=== PATIENT | female | born 1935 | race Caucasian/White ===

== ENCOUNTER → 2017-04-21 | Outpatient (CLI) | payer OTHER ==
[~2017-04-21] MED LIST: ASPIRIN EC81 M1 PO; CLEOCIN HCL150 MG PO; COREG CR20 MG PO; COREG6.25 MG PO; KEFLEX500 MG PO; LANTUS; LASIX 10 MG/10 MG/M1; LASIX 20 MG TAB20 MG PO; SIMVASTATIN40 MG PO; SPIRONOLACTONE25 M1 PO; ZOCOR 10 MG TAB10 MG
== END ==
LOC: HYPER 12:29
DX: E11.622 Type 2 diabetes mellitus with other skin ulcer (principal); L97.322 Non-pressure chronic ulcer of left ankle with fat layer exposed; E11.51 Type 2 diabetes mellitus with diabetic peripheral angiopathy without gangrene; E11.22 Type 2 diabetes mellitus with diabetic chronic kidney disease; I13.0 Hypertensive heart and chronic kidney disease with heart failure and stage 1 through stage 4 chronic kidney disease, or unspecified chronic kidney disease; N18.9 Chronic kidney disease, unspecified; I50.9 Heart failure, unspecified; I25.10 Atherosclerotic heart disease of native coronary artery without angina pectoris; Z89.432 Acquired absence of left foot; Z89.431 Acquired absence of right foot

== ENCOUNTER → 2017-05-05 | Outpatient (CLI) | payer OTHER | LOC: HYPER 07:09 | DX: E11.622 Type 2 diabetes mellitus with other skin ulcer (principal); L97.322 Non-pressure chronic ulcer of left ankle with fat layer exposed; I42.9 Cardiomyopathy, unspecified; E11.51 Type 2 diabetes mellitus with diabetic peripheral angiopathy without gangrene; E11.22 Type 2 diabetes mellitus with diabetic chronic kidney disease; Z79.4 Long term (current) use of insulin; I13.0 Hypertensive heart and chronic kidney disease with heart failure and stage 1 through stage 4 chronic kidney disease, or unspecified chronic kidney disease; N18.9 Chronic kidney disease, unspecified; I50.9 Heart failure, unspecified ==

== ENCOUNTER → 2017-05-19 | Outpatient (CLI) | payer OTHER | LOC: HYPER 07:23 | DX: L97.322 Non-pressure chronic ulcer of left ankle with fat layer exposed (principal); I10 Essential (primary) hypertension; I42.9 Cardiomyopathy, unspecified; Z79.4 Long term (current) use of insulin; E11.51 Type 2 diabetes mellitus with diabetic peripheral angiopathy without gangrene; E11.22 Type 2 diabetes mellitus with diabetic chronic kidney disease; I13.0 Hypertensive heart and chronic kidney disease with heart failure and stage 1 through stage 4 chronic kidney disease, or unspecified chronic kidney disease; N18.9 Chronic kidney disease, unspecified; I50.9 Heart failure, unspecified ==

== ENCOUNTER → 2017-08-03 | Outpatient (CLI) | payer OTHER ==
[~2017-08-03] MED LIST changes: +DOXYCYCLINE 10100 MG PO; +OXYCODONE HCL10 MG PO; +PLAVIX 75 MG TA75 M1 PO; +ZONTIVITY2.08 MG PO
== END ==
LOC: HYPER 06-16 11:24
DX: E11.622 Type 2 diabetes mellitus with other skin ulcer (principal); L97.322 Non-pressure chronic ulcer of left ankle with fat layer exposed; E11.51 Type 2 diabetes mellitus with diabetic peripheral angiopathy without gangrene; I25.10 Atherosclerotic heart disease of native coronary artery without angina pectoris; E11.22 Type 2 diabetes mellitus with diabetic chronic kidney disease; I13.0 Hypertensive heart and chronic kidney disease with heart failure and stage 1 through stage 4 chronic kidney disease, or unspecified chronic kidney disease; I50.9 Heart failure, unspecified; N18.9 Chronic kidney disease, unspecified; E78.5 Hyperlipidemia, unspecified; Z89.421 Acquired absence of other right toe(s); Z79.4 Long term (current) use of insulin; Z89.412 Acquired absence of left great toe

== ENCOUNTER → 2017-08-18 | Outpatient (CLI) | payer OTHER ==
[~2017-08-18] MED LIST changes: +NORCO 5-325 TA1 EACH PO
== END ==
LOC: HYPER 06:42
DX: E11.622 Type 2 diabetes mellitus with other skin ulcer (principal); L97.322 Non-pressure chronic ulcer of left ankle with fat layer exposed; E11.621 Type 2 diabetes mellitus with foot ulcer; L97.521 Non-pressure chronic ulcer of other part of left foot limited to breakdown of skin; L89.893 Pressure ulcer of other site, stage 3; E11.51 Type 2 diabetes mellitus with diabetic peripheral angiopathy without gangrene; E11.22 Type 2 diabetes mellitus with diabetic chronic kidney disease; I13.0 Hypertensive heart and chronic kidney disease with heart failure and stage 1 through stage 4 chronic kidney disease, or unspecified chronic kidney disease; N18.9 Chronic kidney disease, unspecified; I50.9 Heart failure, unspecified; I25.10 Atherosclerotic heart disease of native coronary artery without angina pectoris; E78.5 Hyperlipidemia, unspecified; Z79.4 Long term (current) use of insulin; Z89.421 Acquired absence of other right toe(s); Z89.422 Acquired absence of other left toe(s)

== ENCOUNTER → 2017-09-01 | Outpatient (CLI) | payer OTHER | LOC: HYPER 06:54 | DX: E11.621 Type 2 diabetes mellitus with foot ulcer (principal); L97.521 Non-pressure chronic ulcer of other part of left foot limited to breakdown of skin; L89.890 Pressure ulcer of other site, unstageable; E11.622 Type 2 diabetes mellitus with other skin ulcer; L97.322 Non-pressure chronic ulcer of left ankle with fat layer exposed; E11.22 Type 2 diabetes mellitus with diabetic chronic kidney disease; I13.0 Hypertensive heart and chronic kidney disease with heart failure and stage 1 through stage 4 chronic kidney disease, or unspecified chronic kidney disease; N18.9 Chronic kidney disease, unspecified; I50.9 Heart failure, unspecified; I25.10 Atherosclerotic heart disease of native coronary artery without angina pectoris; I73.9 Peripheral vascular disease, unspecified; E78.5 Hyperlipidemia, unspecified; Z89.421 Acquired absence of other right toe(s); Z79.4 Long term (current) use of insulin; Z89.422 Acquired absence of other left toe(s) ==

== ENCOUNTER → 2017-09-15 | Outpatient (CLI) | payer OTHER | LOC: HYPER 08:16 | DX: I70.243 Atherosclerosis of native arteries of left leg with ulceration of ankle (principal); L89.890 Pressure ulcer of other site, unstageable; E11.622 Type 2 diabetes mellitus with other skin ulcer; E11.621 Type 2 diabetes mellitus with foot ulcer; L97.322 Non-pressure chronic ulcer of left ankle with fat layer exposed; L97.521 Non-pressure chronic ulcer of other part of left foot limited to breakdown of skin; E11.51 Type 2 diabetes mellitus with diabetic peripheral angiopathy without gangrene; I25.10 Atherosclerotic heart disease of native coronary artery without angina pectoris; E11.22 Type 2 diabetes mellitus with diabetic chronic kidney disease; I13.0 Hypertensive heart and chronic kidney disease with heart failure and stage 1 through stage 4 chronic kidney disease, or unspecified chronic kidney disease; N18.9 Chronic kidney disease, unspecified; I50.9 Heart failure, unspecified; E78.5 Hyperlipidemia, unspecified; Z89.421 Acquired absence of other right toe(s); Z89.422 Acquired absence of other left toe(s); Z79.4 Long term (current) use of insulin ==

== ENCOUNTER → 2017-10-06 | Outpatient (CLI) | payer OTHER | LOC: HYPER 06:43 | DX: E11.622 Type 2 diabetes mellitus with other skin ulcer (principal); L97.322 Non-pressure chronic ulcer of left ankle with fat layer exposed; E11.621 Type 2 diabetes mellitus with foot ulcer; L97.521 Non-pressure chronic ulcer of other part of left foot limited to breakdown of skin; E11.51 Type 2 diabetes mellitus with diabetic peripheral angiopathy without gangrene; I70.233 Atherosclerosis of native arteries of right leg with ulceration of ankle; E11.22 Type 2 diabetes mellitus with diabetic chronic kidney disease; I12.9 Hypertensive chronic kidney disease with stage 1 through stage 4 chronic kidney disease, or unspecified chronic kidney disease; N18.9 Chronic kidney disease, unspecified; I25.10 Atherosclerotic heart disease of native coronary artery without angina pectoris; E78.5 Hyperlipidemia, unspecified; Z89.412 Acquired absence of left great toe; Z79.4 Long term (current) use of insulin; Z89.422 Acquired absence of other left toe(s) ==

== ENCOUNTER → 2017-10-25 | Outpatient (CLI) | payer OTHER | LOC: HYPER 07:07 | DX: E11.621 Type 2 diabetes mellitus with foot ulcer (principal); L97.521 Non-pressure chronic ulcer of other part of left foot limited to breakdown of skin; E11.622 Type 2 diabetes mellitus with other skin ulcer; I70.243 Atherosclerosis of native arteries of left leg with ulceration of ankle; L97.321 Non-pressure chronic ulcer of left ankle limited to breakdown of skin; E11.51 Type 2 diabetes mellitus with diabetic peripheral angiopathy without gangrene; R60.9 Edema, unspecified; Z79.4 Long term (current) use of insulin; I42.9 Cardiomyopathy, unspecified; E11.22 Type 2 diabetes mellitus with diabetic chronic kidney disease; I13.0 Hypertensive heart and chronic kidney disease with heart failure and stage 1 through stage 4 chronic kidney disease, or unspecified chronic kidney disease; N18.9 Chronic kidney disease, unspecified; I50.9 Heart failure, unspecified; I25.10 Atherosclerotic heart disease of native coronary artery without angina pectoris; Z89.422 Acquired absence of other left toe(s); Z89.421 Acquired absence of other right toe(s) ==

== ENCOUNTER → 2017-11-17 | Outpatient (CLI) | payer OTHER ==
[~2017-11-17] MED LIST changes: -NORCO 5-325 TA1 EACH PO
== END ==
LOC: HYPER 06:44
DX: E11.621 Type 2 diabetes mellitus with foot ulcer (principal); L97.521 Non-pressure chronic ulcer of other part of left foot limited to breakdown of skin; E11.622 Type 2 diabetes mellitus with other skin ulcer; L97.322 Non-pressure chronic ulcer of left ankle with fat layer exposed; E11.51 Type 2 diabetes mellitus with diabetic peripheral angiopathy without gangrene; R60.9 Edema, unspecified; Z79.4 Long term (current) use of insulin; E11.22 Type 2 diabetes mellitus with diabetic chronic kidney disease; I13.0 Hypertensive heart and chronic kidney disease with heart failure and stage 1 through stage 4 chronic kidney disease, or unspecified chronic kidney disease; N18.9 Chronic kidney disease, unspecified; I50.9 Heart failure, unspecified; I25.10 Atherosclerotic heart disease of native coronary artery without angina pectoris; Z89.422 Acquired absence of other left toe(s); Z89.421 Acquired absence of other right toe(s)

== ENCOUNTER → 2017-12-15 | Outpatient (CLI) | payer OTHER ==
[~2017-12-15] MED LIST changes: +NORCO 5-325 TA1 EACH PO
== END ==
LOC: HYPER 06:46
DX: E11.622 Type 2 diabetes mellitus with other skin ulcer (principal); L97.322 Non-pressure chronic ulcer of left ankle with fat layer exposed; E11.51 Type 2 diabetes mellitus with diabetic peripheral angiopathy without gangrene; R60.9 Edema, unspecified; L84 Corns and callosities; E11.22 Type 2 diabetes mellitus with diabetic chronic kidney disease; I13.0 Hypertensive heart and chronic kidney disease with heart failure and stage 1 through stage 4 chronic kidney disease, or unspecified chronic kidney disease; N18.9 Chronic kidney disease, unspecified; I50.9 Heart failure, unspecified; Z89.422 Acquired absence of other left toe(s); Z89.421 Acquired absence of other right toe(s)

== ENCOUNTER → 2017-12-29 | Outpatient (CLI) | payer OTHER | LOC: HYPER 06:46 | DX: E11.622 Type 2 diabetes mellitus with other skin ulcer (principal); I70.243 Atherosclerosis of native arteries of left leg with ulceration of ankle; L97.322 Non-pressure chronic ulcer of left ankle with fat layer exposed; E11.51 Type 2 diabetes mellitus with diabetic peripheral angiopathy without gangrene; E11.22 Type 2 diabetes mellitus with diabetic chronic kidney disease; I13.0 Hypertensive heart and chronic kidney disease with heart failure and stage 1 through stage 4 chronic kidney disease, or unspecified chronic kidney disease; N18.9 Chronic kidney disease, unspecified; I50.9 Heart failure, unspecified; L84 Corns and callosities; R60.9 Edema, unspecified; I25.10 Atherosclerotic heart disease of native coronary artery without angina pectoris; Z89.412 Acquired absence of left great toe; Z89.421 Acquired absence of other right toe(s) ==

== ENCOUNTER → 2018-01-05 | Outpatient (CLI) | payer OTHER | LOC: HYPER 07:04 | DX: E11.622 Type 2 diabetes mellitus with other skin ulcer (principal); I70.243 Atherosclerosis of native arteries of left leg with ulceration of ankle; L97.321 Non-pressure chronic ulcer of left ankle limited to breakdown of skin; L97.322 Non-pressure chronic ulcer of left ankle with fat layer exposed; S81.802D Unspecified open wound, left lower leg, subsequent encounter; E11.51 Type 2 diabetes mellitus with diabetic peripheral angiopathy without gangrene; E11.22 Type 2 diabetes mellitus with diabetic chronic kidney disease; I13.0 Hypertensive heart and chronic kidney disease with heart failure and stage 1 through stage 4 chronic kidney disease, or unspecified chronic kidney disease; N18.9 Chronic kidney disease, unspecified; I50.9 Heart failure, unspecified; I25.10 Atherosclerotic heart disease of native coronary artery without angina pectoris; I42.9 Cardiomyopathy, unspecified; L84 Corns and callosities; M12.539 Traumatic arthropathy, unspecified wrist; E78.00 Pure hypercholesterolemia, unspecified; Z89.421 Acquired absence of other right toe(s); Z79.4 Long term (current) use of insulin; Z89.412 Acquired absence of left great toe; X58.XXXD Exposure to other specified factors, subsequent encounter ==

== ENCOUNTER → 2018-01-12 | Outpatient (CLI) | payer OTHER | LOC: HYPER 07:07 | DX: E11.622 Type 2 diabetes mellitus with other skin ulcer (principal); L97.322 Non-pressure chronic ulcer of left ankle with fat layer exposed; E11.51 Type 2 diabetes mellitus with diabetic peripheral angiopathy without gangrene; I42.9 Cardiomyopathy, unspecified; E11.22 Type 2 diabetes mellitus with diabetic chronic kidney disease; I13.0 Hypertensive heart and chronic kidney disease with heart failure and stage 1 through stage 4 chronic kidney disease, or unspecified chronic kidney disease; N18.9 Chronic kidney disease, unspecified; I50.9 Heart failure, unspecified; L84 Corns and callosities; M12.539 Traumatic arthropathy, unspecified wrist; I25.10 Atherosclerotic heart disease of native coronary artery without angina pectoris; E78.5 Hyperlipidemia, unspecified; Z89.421 Acquired absence of other right toe(s); Z89.412 Acquired absence of left great toe; Z79.4 Long term (current) use of insulin ==

== ENCOUNTER → 2018-02-16 | Outpatient (CLI) | payer OTHER | LOC: HYPER 06:53 | DX: E11.622 Type 2 diabetes mellitus with other skin ulcer (principal); L97.811 Non-pressure chronic ulcer of other part of right lower leg limited to breakdown of skin; L97.821 Non-pressure chronic ulcer of other part of left lower leg limited to breakdown of skin; I70.243 Atherosclerosis of native arteries of left leg with ulceration of ankle; L97.321 Non-pressure chronic ulcer of left ankle limited to breakdown of skin; E11.22 Type 2 diabetes mellitus with diabetic chronic kidney disease; I13.0 Hypertensive heart and chronic kidney disease with heart failure and stage 1 through stage 4 chronic kidney disease, or unspecified chronic kidney disease; N18.9 Chronic kidney disease, unspecified; I50.9 Heart failure, unspecified; L84 Corns and callosities; I42.9 Cardiomyopathy, unspecified; I25.10 Atherosclerotic heart disease of native coronary artery without angina pectoris; E78.5 Hyperlipidemia, unspecified; E78.00 Pure hypercholesterolemia, unspecified; Z89.421 Acquired absence of other right toe(s); Z89.412 Acquired absence of left great toe; Z79.4 Long term (current) use of insulin ==

== ENCOUNTER → 2018-03-09 | Outpatient (CLI) | payer OTHER | LOC: HYPER 06:50 | DX: E11.622 Type 2 diabetes mellitus with other skin ulcer (principal); L97.322 Non-pressure chronic ulcer of left ankle with fat layer exposed; S81.802D Unspecified open wound, left lower leg, subsequent encounter; E11.51 Type 2 diabetes mellitus with diabetic peripheral angiopathy without gangrene; E11.22 Type 2 diabetes mellitus with diabetic chronic kidney disease; I13.0 Hypertensive heart and chronic kidney disease with heart failure and stage 1 through stage 4 chronic kidney disease, or unspecified chronic kidney disease; I50.9 Heart failure, unspecified; N18.9 Chronic kidney disease, unspecified; I42.9 Cardiomyopathy, unspecified; L84 Corns and callosities; I25.10 Atherosclerotic heart disease of native coronary artery without angina pectoris; E78.5 Hyperlipidemia, unspecified; M12.539 Traumatic arthropathy, unspecified wrist; Z89.421 Acquired absence of other right toe(s); Z79.4 Long term (current) use of insulin; Z89.412 Acquired absence of left great toe; X58.XXXD Exposure to other specified factors, subsequent encounter ==

== ENCOUNTER → 2018-03-30 | Outpatient (CLI) | payer OTHER | LOC: HYPER 06:55 | DX: E11.622 Type 2 diabetes mellitus with other skin ulcer (principal); L97.322 Non-pressure chronic ulcer of left ankle with fat layer exposed; E11.51 Type 2 diabetes mellitus with diabetic peripheral angiopathy without gangrene; I42.9 Cardiomyopathy, unspecified; E11.22 Type 2 diabetes mellitus with diabetic chronic kidney disease; I13.0 Hypertensive heart and chronic kidney disease with heart failure and stage 1 through stage 4 chronic kidney disease, or unspecified chronic kidney disease; I50.9 Heart failure, unspecified; N18.9 Chronic kidney disease, unspecified; L84 Corns and callosities; E78.5 Hyperlipidemia, unspecified; I25.10 Atherosclerotic heart disease of native coronary artery without angina pectoris; M12.539 Traumatic arthropathy, unspecified wrist; Z79.4 Long term (current) use of insulin; Z89.422 Acquired absence of other left toe(s); Z89.421 Acquired absence of other right toe(s) ==

== ENCOUNTER → 2018-05-11 | Outpatient (CLI) | payer OTHER | LOC: HYPER 05-04 09:40 | DX: E11.622 Type 2 diabetes mellitus with other skin ulcer (principal); L97.322 Non-pressure chronic ulcer of left ankle with fat layer exposed; E11.51 Type 2 diabetes mellitus with diabetic peripheral angiopathy without gangrene; E11.22 Type 2 diabetes mellitus with diabetic chronic kidney disease; I13.0 Hypertensive heart and chronic kidney disease with heart failure and stage 1 through stage 4 chronic kidney disease, or unspecified chronic kidney disease; N18.9 Chronic kidney disease, unspecified; I50.9 Heart failure, unspecified; E78.5 Hyperlipidemia, unspecified; L84 Corns and callosities; I42.9 Cardiomyopathy, unspecified; I25.10 Atherosclerotic heart disease of native coronary artery without angina pectoris; M12.539 Traumatic arthropathy, unspecified wrist; Z79.4 Long term (current) use of insulin; Z89.421 Acquired absence of other right toe(s); Z89.412 Acquired absence of left great toe ==

== ENCOUNTER → 2018-06-16 | Outpatient (CLI) | payer OTHER | LOC: HYPER 11:35 | DX: E11.622 Type 2 diabetes mellitus with other skin ulcer (principal); I70.243 Atherosclerosis of native arteries of left leg with ulceration of ankle; L97.322 Non-pressure chronic ulcer of left ankle with fat layer exposed; E11.51 Type 2 diabetes mellitus with diabetic peripheral angiopathy without gangrene; E11.22 Type 2 diabetes mellitus with diabetic chronic kidney disease; I13.0 Hypertensive heart and chronic kidney disease with heart failure and stage 1 through stage 4 chronic kidney disease, or unspecified chronic kidney disease; I50.9 Heart failure, unspecified; N18.9 Chronic kidney disease, unspecified; E78.5 Hyperlipidemia, unspecified; I42.9 Cardiomyopathy, unspecified; I25.10 Atherosclerotic heart disease of native coronary artery without angina pectoris; Z89.421 Acquired absence of other right toe(s); Z89.412 Acquired absence of left great toe; Z79.4 Long term (current) use of insulin ==

== ENCOUNTER → 2018-07-05 | Outpatient (CLI) | payer OTHER | LOC: HYPER 06:40 | DX: E11.622 Type 2 diabetes mellitus with other skin ulcer (principal); I70.243 Atherosclerosis of native arteries of left leg with ulceration of ankle; L97.322 Non-pressure chronic ulcer of left ankle with fat layer exposed; L84 Corns and callosities; E11.51 Type 2 diabetes mellitus with diabetic peripheral angiopathy without gangrene; E11.22 Type 2 diabetes mellitus with diabetic chronic kidney disease; I13.0 Hypertensive heart and chronic kidney disease with heart failure and stage 1 through stage 4 chronic kidney disease, or unspecified chronic kidney disease; N18.9 Chronic kidney disease, unspecified; I50.9 Heart failure, unspecified; E78.5 Hyperlipidemia, unspecified; I42.9 Cardiomyopathy, unspecified; I25.10 Atherosclerotic heart disease of native coronary artery without angina pectoris; Z79.4 Long term (current) use of insulin; Z89.412 Acquired absence of left great toe; Z89.421 Acquired absence of other right toe(s) ==

== ENCOUNTER → 2018-07-19 | Outpatient (CLI) | payer OTHER | LOC: HYPER 06:56 | DX: E11.622 Type 2 diabetes mellitus with other skin ulcer (principal); I70.243 Atherosclerosis of native arteries of left leg with ulceration of ankle; L97.322 Non-pressure chronic ulcer of left ankle with fat layer exposed; L84 Corns and callosities; E11.51 Type 2 diabetes mellitus with diabetic peripheral angiopathy without gangrene; E78.5 Hyperlipidemia, unspecified; E11.22 Type 2 diabetes mellitus with diabetic chronic kidney disease; I13.0 Hypertensive heart and chronic kidney disease with heart failure and stage 1 through stage 4 chronic kidney disease, or unspecified chronic kidney disease; N18.9 Chronic kidney disease, unspecified; I50.9 Heart failure, unspecified; I42.9 Cardiomyopathy, unspecified; I25.10 Atherosclerotic heart disease of native coronary artery without angina pectoris; Z89.421 Acquired absence of other right toe(s); Z89.412 Acquired absence of left great toe; Z79.4 Long term (current) use of insulin ==

== ENCOUNTER → 2018-08-17 | Outpatient (CLI) | payer OTHER | LOC: HYPER 06:38 | DX: E11.622 Type 2 diabetes mellitus with other skin ulcer (principal); L97.322 Non-pressure chronic ulcer of left ankle with fat layer exposed; E11.51 Type 2 diabetes mellitus with diabetic peripheral angiopathy without gangrene; E11.22 Type 2 diabetes mellitus with diabetic chronic kidney disease; I13.0 Hypertensive heart and chronic kidney disease with heart failure and stage 1 through stage 4 chronic kidney disease, or unspecified chronic kidney disease; N18.9 Chronic kidney disease, unspecified; I50.9 Heart failure, unspecified; L84 Corns and callosities; I42.9 Cardiomyopathy, unspecified; E78.00 Pure hypercholesterolemia, unspecified; E78.5 Hyperlipidemia, unspecified; R06.9 Unspecified abnormalities of breathing; I25.10 Atherosclerotic heart disease of native coronary artery without angina pectoris; Z89.421 Acquired absence of other right toe(s); Z79.4 Long term (current) use of insulin; Z89.412 Acquired absence of left great toe ==

== ENCOUNTER → 2018-09-14 | Outpatient (CLI) | payer OTHER | LOC: HYPER 07:41 | DX: E11.622 Type 2 diabetes mellitus with other skin ulcer (principal); I70.243 Atherosclerosis of native arteries of left leg with ulceration of ankle; L97.322 Non-pressure chronic ulcer of left ankle with fat layer exposed; L84 Corns and callosities; E11.51 Type 2 diabetes mellitus with diabetic peripheral angiopathy without gangrene; E11.22 Type 2 diabetes mellitus with diabetic chronic kidney disease; I13.0 Hypertensive heart and chronic kidney disease with heart failure and stage 1 through stage 4 chronic kidney disease, or unspecified chronic kidney disease; I50.9 Heart failure, unspecified; N18.9 Chronic kidney disease, unspecified; E78.5 Hyperlipidemia, unspecified; I25.10 Atherosclerotic heart disease of native coronary artery without angina pectoris; I42.9 Cardiomyopathy, unspecified; Z79.4 Long term (current) use of insulin; Z89.421 Acquired absence of other right toe(s); Z89.412 Acquired absence of left great toe ==

== ENCOUNTER → 2018-09-28 | Outpatient (CLI) | payer OTHER | LOC: HYPER 07:04 | DX: E11.622 Type 2 diabetes mellitus with other skin ulcer (principal); I70.243 Atherosclerosis of native arteries of left leg with ulceration of ankle; L97.322 Non-pressure chronic ulcer of left ankle with fat layer exposed; L84 Corns and callosities; E11.51 Type 2 diabetes mellitus with diabetic peripheral angiopathy without gangrene; E11.22 Type 2 diabetes mellitus with diabetic chronic kidney disease; I13.0 Hypertensive heart and chronic kidney disease with heart failure and stage 1 through stage 4 chronic kidney disease, or unspecified chronic kidney disease; I50.9 Heart failure, unspecified; N18.9 Chronic kidney disease, unspecified; E78.5 Hyperlipidemia, unspecified; I42.9 Cardiomyopathy, unspecified; I25.10 Atherosclerotic heart disease of native coronary artery without angina pectoris; Z79.4 Long term (current) use of insulin; Z89.421 Acquired absence of other right toe(s) ==

== ENCOUNTER → 2018-10-12 | Outpatient (CLI) | payer OTHER | LOC: HYPER 06:34 | DX: E11.622 Type 2 diabetes mellitus with other skin ulcer (principal); I70.243 Atherosclerosis of native arteries of left leg with ulceration of ankle; L97.322 Non-pressure chronic ulcer of left ankle with fat layer exposed; L84 Corns and callosities; E11.51 Type 2 diabetes mellitus with diabetic peripheral angiopathy without gangrene; E11.22 Type 2 diabetes mellitus with diabetic chronic kidney disease; I13.0 Hypertensive heart and chronic kidney disease with heart failure and stage 1 through stage 4 chronic kidney disease, or unspecified chronic kidney disease; I50.9 Heart failure, unspecified; N18.9 Chronic kidney disease, unspecified; E78.5 Hyperlipidemia, unspecified; I42.9 Cardiomyopathy, unspecified; I25.10 Atherosclerotic heart disease of native coronary artery without angina pectoris; Z79.4 Long term (current) use of insulin; Z89.421 Acquired absence of other right toe(s); Z89.412 Acquired absence of left great toe ==

== ENCOUNTER → 2018-10-26 | Outpatient (CLI) | payer OTHER | LOC: HYPER 06:41 | DX: E11.622 Type 2 diabetes mellitus with other skin ulcer (principal); I70.243 Atherosclerosis of native arteries of left leg with ulceration of ankle; L97.322 Non-pressure chronic ulcer of left ankle with fat layer exposed; E11.22 Type 2 diabetes mellitus with diabetic chronic kidney disease; I13.0 Hypertensive heart and chronic kidney disease with heart failure and stage 1 through stage 4 chronic kidney disease, or unspecified chronic kidney disease; N18.9 Chronic kidney disease, unspecified; I50.9 Heart failure, unspecified; L84 Corns and callosities; I42.9 Cardiomyopathy, unspecified; I25.10 Atherosclerotic heart disease of native coronary artery without angina pectoris; E78.5 Hyperlipidemia, unspecified; R60.9 Edema, unspecified; Z89.412 Acquired absence of left great toe; Z79.4 Long term (current) use of insulin; Z89.421 Acquired absence of other right toe(s) ==

== ENCOUNTER → 2018-11-09 | Outpatient (CLI) | payer OTHER | LOC: HYPER 06:52 | DX: E11.622 Type 2 diabetes mellitus with other skin ulcer (principal); L97.322 Non-pressure chronic ulcer of left ankle with fat layer exposed; E11.51 Type 2 diabetes mellitus with diabetic peripheral angiopathy without gangrene; E11.22 Type 2 diabetes mellitus with diabetic chronic kidney disease; I13.0 Hypertensive heart and chronic kidney disease with heart failure and stage 1 through stage 4 chronic kidney disease, or unspecified chronic kidney disease; N18.9 Chronic kidney disease, unspecified; I50.9 Heart failure, unspecified; L84 Corns and callosities; E78.5 Hyperlipidemia, unspecified; I42.9 Cardiomyopathy, unspecified; I25.10 Atherosclerotic heart disease of native coronary artery without angina pectoris; R60.9 Edema, unspecified; Z89.421 Acquired absence of other right toe(s); Z89.412 Acquired absence of left great toe; Z79.4 Long term (current) use of insulin ==

== ENCOUNTER → 2018-11-30 | Outpatient (CLI) | payer OTHER | LOC: HYPER 06:40 | DX: E11.622 Type 2 diabetes mellitus with other skin ulcer (principal); I70.243 Atherosclerosis of native arteries of left leg with ulceration of ankle; L97.322 Non-pressure chronic ulcer of left ankle with fat layer exposed; E11.51 Type 2 diabetes mellitus with diabetic peripheral angiopathy without gangrene; E11.22 Type 2 diabetes mellitus with diabetic chronic kidney disease; I13.0 Hypertensive heart and chronic kidney disease with heart failure and stage 1 through stage 4 chronic kidney disease, or unspecified chronic kidney disease; N18.9 Chronic kidney disease, unspecified; I50.9 Heart failure, unspecified; I42.9 Cardiomyopathy, unspecified; L84 Corns and callosities; E78.5 Hyperlipidemia, unspecified; I25.10 Atherosclerotic heart disease of native coronary artery without angina pectoris; R60.9 Edema, unspecified; Z89.412 Acquired absence of left great toe; Z79.4 Long term (current) use of insulin; Z89.421 Acquired absence of other right toe(s) ==

== ENCOUNTER → 2018-12-14 | Outpatient (CLI) | payer OTHER | LOC: HYPER 06:57 | DX: E11.622 Type 2 diabetes mellitus with other skin ulcer (principal); L97.322 Non-pressure chronic ulcer of left ankle with fat layer exposed; E11.51 Type 2 diabetes mellitus with diabetic peripheral angiopathy without gangrene; E11.22 Type 2 diabetes mellitus with diabetic chronic kidney disease; I13.0 Hypertensive heart and chronic kidney disease with heart failure and stage 1 through stage 4 chronic kidney disease, or unspecified chronic kidney disease; N18.9 Chronic kidney disease, unspecified; I50.9 Heart failure, unspecified; L84 Corns and callosities; I42.9 Cardiomyopathy, unspecified; I25.10 Atherosclerotic heart disease of native coronary artery without angina pectoris; E78.5 Hyperlipidemia, unspecified; R60.9 Edema, unspecified; Z79.4 Long term (current) use of insulin ==

== ENCOUNTER → 2019-01-11 | Outpatient (CLI) | payer OTHER | LOC: HYPER 06:52 | DX: E11.622 Type 2 diabetes mellitus with other skin ulcer (principal); I70.243 Atherosclerosis of native arteries of left leg with ulceration of ankle; L97.322 Non-pressure chronic ulcer of left ankle with fat layer exposed; E11.51 Type 2 diabetes mellitus with diabetic peripheral angiopathy without gangrene; E11.22 Type 2 diabetes mellitus with diabetic chronic kidney disease; I13.0 Hypertensive heart and chronic kidney disease with heart failure and stage 1 through stage 4 chronic kidney disease, or unspecified chronic kidney disease; I50.9 Heart failure, unspecified; N18.9 Chronic kidney disease, unspecified; I42.9 Cardiomyopathy, unspecified; E78.5 Hyperlipidemia, unspecified; L84 Corns and callosities; R60.9 Edema, unspecified; I25.10 Atherosclerotic heart disease of native coronary artery without angina pectoris; Z89.412 Acquired absence of left great toe; Z79.4 Long term (current) use of insulin; Z89.421 Acquired absence of other right toe(s) ==

== ENCOUNTER → 2019-02-08 | Outpatient (CLI) | payer OTHER | LOC: HYPER 06:31 | DX: E11.622 Type 2 diabetes mellitus with other skin ulcer (principal); I70.243 Atherosclerosis of native arteries of left leg with ulceration of ankle; L97.322 Non-pressure chronic ulcer of left ankle with fat layer exposed; E11.22 Type 2 diabetes mellitus with diabetic chronic kidney disease; I13.0 Hypertensive heart and chronic kidney disease with heart failure and stage 1 through stage 4 chronic kidney disease, or unspecified chronic kidney disease; N18.9 Chronic kidney disease, unspecified; I50.9 Heart failure, unspecified; I42.9 Cardiomyopathy, unspecified; L84 Corns and callosities; I25.10 Atherosclerotic heart disease of native coronary artery without angina pectoris; E78.5 Hyperlipidemia, unspecified; R60.9 Edema, unspecified; Z79.4 Long term (current) use of insulin; Z89.412 Acquired absence of left great toe; Z89.421 Acquired absence of other right toe(s) ==

== ENCOUNTER → 2019-03-08 | Outpatient (CLI) | payer OTHER | LOC: HYPER 06:40 | DX: E11.622 Type 2 diabetes mellitus with other skin ulcer (principal); L97.322 Non-pressure chronic ulcer of left ankle with fat layer exposed; E11.51 Type 2 diabetes mellitus with diabetic peripheral angiopathy without gangrene; E11.22 Type 2 diabetes mellitus with diabetic chronic kidney disease; I13.0 Hypertensive heart and chronic kidney disease with heart failure and stage 1 through stage 4 chronic kidney disease, or unspecified chronic kidney disease; N18.9 Chronic kidney disease, unspecified; I50.9 Heart failure, unspecified; I25.10 Atherosclerotic heart disease of native coronary artery without angina pectoris; I42.9 Cardiomyopathy, unspecified; L84 Corns and callosities; E78.5 Hyperlipidemia, unspecified; E78.00 Pure hypercholesterolemia, unspecified; R60.9 Edema, unspecified; Z79.4 Long term (current) use of insulin; Z89.421 Acquired absence of other right toe(s); Z89.412 Acquired absence of left great toe ==

== ENCOUNTER → 2019-03-29 | Outpatient (CLI) | payer OTHER | LOC: HYPER 06:40 | DX: E11.622 Type 2 diabetes mellitus with other skin ulcer (principal); I70.243 Atherosclerosis of native arteries of left leg with ulceration of ankle; L97.322 Non-pressure chronic ulcer of left ankle with fat layer exposed; L84 Corns and callosities; E11.51 Type 2 diabetes mellitus with diabetic peripheral angiopathy without gangrene; E11.22 Type 2 diabetes mellitus with diabetic chronic kidney disease; I13.0 Hypertensive heart and chronic kidney disease with heart failure and stage 1 through stage 4 chronic kidney disease, or unspecified chronic kidney disease; N18.9 Chronic kidney disease, unspecified; I50.9 Heart failure, unspecified; I25.10 Atherosclerotic heart disease of native coronary artery without angina pectoris; I42.9 Cardiomyopathy, unspecified; R60.9 Edema, unspecified; Z89.412 Acquired absence of left great toe; Z79.4 Long term (current) use of insulin; Z89.421 Acquired absence of other right toe(s) ==

== ENCOUNTER → 2019-04-19 | Outpatient (CLI) | payer OTHER | LOC: HYPER 06:57 | DX: E11.622 Type 2 diabetes mellitus with other skin ulcer (principal); I70.243 Atherosclerosis of native arteries of left leg with ulceration of ankle; L97.322 Non-pressure chronic ulcer of left ankle with fat layer exposed; E11.51 Type 2 diabetes mellitus with diabetic peripheral angiopathy without gangrene; E11.22 Type 2 diabetes mellitus with diabetic chronic kidney disease; I12.9 Hypertensive chronic kidney disease with stage 1 through stage 4 chronic kidney disease, or unspecified chronic kidney disease; N18.9 Chronic kidney disease, unspecified; I42.9 Cardiomyopathy, unspecified; L84 Corns and callosities; I25.10 Atherosclerotic heart disease of native coronary artery without angina pectoris; E78.5 Hyperlipidemia, unspecified; R60.9 Edema, unspecified; Z89.421 Acquired absence of other right toe(s); Z79.4 Long term (current) use of insulin; Z89.412 Acquired absence of left great toe ==

== ENCOUNTER 2019-05-12 00:14 | Emergency (ER) | payer OTHER ==
[~2019-05-12] VITALS: Ht 170.2 cm; Wt 83.5 kg
[2019-05-12 00:56] LABS: ABSOLUTE NEUTROPHILS 6.4 thou/uL (1.4-8.2); BASOPHILS 0.6 % (0.0-2.0); EOSINOPHILS 1.8 % (0.0-3.0); HEMATOCRIT 43.2 % (37.0-47.0); HEMOGLOBIN 14.3 gm/dL (12.0-15.0); LYMPHOCYTES 16.2 % (24.0-44.0); MCH 29.6 pg (26.0-34.0); MCHC 33.1 g/dL (28.0-37.0); MCV 89.6 fL (80.0-100.0); PLATELET COUNT 154 thou/uL (150-400); POLYS 74.4 % (36.0-66.0); RBC 4.82 mil/uL (4.20-5.00); RDW 15.4 % (10.5-14.5); WBC 8.6 thou/uL (4.0-11.0)
[2019-05-12 01:05] LABS: INR 1.1; PROTIME 10.9 Seconds (9.3-11.4)
[2019-05-12 01:10] LABS: CREATININE 1.4 mg/dL (0.6-1.0); POTASSIUM 4.8 mmol/L (3.5-5.1)
[2019-05-12 01:16] LABS: ALBUMIN 3.5 g/dL (3.4-5.0); TOTAL BILIRUBIN 0.6 mg/dL (<0.1-1.0); TOTAL PROTEIN 7.3 g/dL (6.4-8.2)
[2019-05-12] MEDS ORDERED: ANUSOL-HC25 MG RECTAL (01:22)
[2019-05-12 01:45] VITALS: BP 146/71
[2019-05-30] MEDS ORDERED: SPIRONOLACTONE50 MG PO (10:00)
[2019-05-30] MEDS ORDERED: FUROSEMIDE 20 M20 MG PO (10:02)
[2019-05-30] MEDS ORDERED: LEVEMIR100 UNIT/1 SUBQ (10:03)
== END 2019-05-12 02:19 | disposition home or self-care (01) ==
LOC: ER 00:14
PROVIDERS: Emergency Medicine
DX: K62.5 Hemorrhage of anus and rectum (principal); E11.22 Type 2 diabetes mellitus with diabetic chronic kidney disease; I73.9 Peripheral vascular disease, unspecified; I13.0 Hypertensive heart and chronic kidney disease with heart failure and stage 1 through stage 4 chronic kidney disease, or unspecified chronic kidney disease; N18.3 Chronic kidney disease, stage 3 (moderate); I50.9 Heart failure, unspecified; I25.10 Atherosclerotic heart disease of native coronary artery without angina pectoris; Z90.49 Acquired absence of other specified parts of digestive tract; Z79.4 Long term (current) use of insulin

== ENCOUNTER → 2019-05-31 | Outpatient (CLI) | payer OTHER ==
[~2019-05-31] VITALS: Ht 172.7 cm; Wt 83.5 kg
[~2019-05-31] MED LIST changes: +ANUSOL-HC25 MG RECTAL; +FUROSEMIDE 20 M20 MG PO; +LEVEMIR100 UNIT/1 SUBQ; +SPIRONOLACTONE50 MG PO
--- NOTE | 2019-06-01 18:06 | PATH ---
[facility] [place] [address] PATHOLOGY RPT PROCEDURE Name: HUNTER MADDEN Room #: REG [facility] M..#: [id number] Admission: 05/31/19 Date of : 39 Discharge: Report #: [id number] Path Case #: [id number] [facility] Accession Number: [id number] . 01 Material submitted: . PART A: colon - POLYP AT DESCENDING COLON. Modifiers: descending PART B: colon - POLYP AT SIGMOID COLON, JAR 1. Modifiers: sigmoid, 1 PART C: colon - POLYP AT SIGMOID COLON, JAR 2. Modifiers: sigmoid, 2 PART D: colon - POLYP AT SIGMOID COLON, JAR 3. Modifiers: sigmoid, 3 PART E: colon - POLYP AT SIGMOID COLON, JAR 4. Modifiers: sigmoid, 4 . 01 Clinical history: . Rectal bleeding, colon polyps . 02 Diagnosis: A. Polyp, descending colon, endoscopic biopsy: - Tubular adenoma. - Negative for high-grade dysplasia. - Inked margin showing unremarkable mucosa. . B. Polyp, at sigmoid colon (jar 1), endoscopic biopsy: - Multiple polyps showing tubulovillous adenoma. - Negative for high-grade dysplasia. - Cautery/themal effect identified adjacent to adenomatous changes as well as unremarkable mucosa. . C. Polyp, at sigmoid colon (jar 2), endoscopic biopsy: - Tubulovillous adenoma. - Negative for high-grade dysplasia. . D. Polyp, at sigmoid colon (jar 3), endoscopic biopsy: - Tubulovillous adenoma, multiple fragments. - Negative for high-grade dysplasia. - Cautery/themal effect identified adjacent to adenomatous changes as well as unremarkable mucosa. . E. Polyp, at sigmoid colon (jar 4), endoscopic biopsy: - Tubulovillous adenoma, multiple fragments. - Negative for high-grade dysplasia. - Cautery/themal effect identified adjacent to adenomatous changes as well as unremarkable mucosa. (IUV:heather; 06/01/2019) QMS 06/01/2019 1252 Local . 02 Comment: B, D, and E: Please correlate with intraoperative/endoscopic findings for complete removal of these polyps. [facility] [address] [place] [address] PATHOLOGY RPT PROCEDURE Name: CHANOHUNTER CEZAR Room #: REG CLI Nilda.#: [id number] Admission: 05/31/19 Date of : 39 Discharge: Report #: [id number] Path Case #: [id number] . (IUV:heather; 06/01/2019) . 02 Electronically signed: . Christy Ordonez MD, Pathologist NPI- [id number] . 01 Gross description: . A. The specimen is received in formalin, labeled "Hunter Madden, polyp at descending colon", is a lin rubbery sessile polyp measuring 0.5 x 0.4 x 0.1 cm, inked black and bisected. The specimen is entirely submitted in A1. . B. The specimen is received in formalin, labeled "Hunter Madden, polyp at sigmoid colon, jar 1", are three lin-brown, rubbery, friable segments with irregular surface measuring 1.8 x 1.8 x 1.2 cm (margin inked black, serially sectioned and entirely submitted in B1-B2), 1.4 x 1.0 x 0.8 cm (margin inked black, serially sectioned and entirely submitted in B3) the last segment is 1.2 x 1.0 x 0.6 cm, margin inked black, trisected and entirely submitted in B4. The specimen is entirely submitted in B1-B4. . C. The specimen is received in formalin, labeled "Hunter Madden, polyp at sigmoid, jar 2", consists of few lin-brown, rubbery, friable segments measuring 1.2 x 0.6 x 0.3 cm in aggregate. The specimen is entirely submitted in C1. . D. The specimen is received in formalin, labeled "Jacquie Maddenian, polyp at sigmoid colon, jar 3", consists of multiple lin-brown, rubbery, friable segments ranging from 0.2 cm up to 1.5 cm in greatest dimension and measuring 3.0 x 1.7 x 1.2 cm in aggregate. The specimen is entirely submitted as follows: D1-D2. Largest segment, margin inked black, serially sectioned. D3. Second largest segment, margin inked black, serially sectioned. D4. Third largest segment, margin inked black, serially sectioned. D5. Remaining specimen. . E. The specimen is received in formalin, labeled "MaddenJacquieHunter, polyp at sigmoid colon, jar 4", consists of multiple lin-brown, rubbery, friable segments ranging from 0.3 cm up to 2.1 cm in greatest dimension and measuring 3.5 x 3.0 x 1.0 cm in aggregate. The specimen is entirely submitted as follows: E1. Largest segment, margin inked black, bisected. E2-E3. Second largest segment, margin inked black, serially sectioned. E4. Single segment, margin inked black, trisected. E5. Single segment, margin inked black, trisected. E6. Single segment, margin inked black, serially sectioned. E7. Single segment, margin inked black, bisected. E8. Single segment, margin inked black, bisected. [address] [address] PATHOLOGY RPT PROCEDURE Name: CHANOHUNTER CEZAR [facility]: [id number] Admission: 05/31/19 Date of : 39 Discharge: Report #: [id number] Path Case #: [id number] E9. Remaining specimen. ([facility]; 05/31/2019) [facility] 06/01/2019 1245 Local . 02 Pathologist provided ICD-10: D12.4, D12.5 . 02 CPT . 623650, 859408, 982568, 526863, 749479 Specimen Comment: A courtesy copy of this report has been sent to Specimen Comment: [phone]. Specimen Comment: Report sent to Performed at: [address], [place], [place] [id number] MD Marc Brower MD Phone: [phone] Performed at: [address] [id number] MD Christy Ordonez MD Phone: [phone]
--- NOTE | 2019-06-02 09:23 | P ---
[facility] [place] [address] PROCEDURE REPORT Name: HUNTER MADDEN Room #: REG Vianey Olson#: [id number] Admission: 05/31/19 Attend Phys: Triston Kang Discharge: Date of : 39 Report #: [id number] THIS REPORT FOR: //name// CC: Triston Guzman DATE OF SERVICE: 05/31/2019 PROCEDURE PERFORMED: Colonoscopy with polypectomy and bleeding control as well as tattoo. HISTORY OF PRESENT ILLNESS: The patient is an 83-year-old female with recent history of bright red blood per rectum. This was painless. She does have a previous colonoscopy by myself on 01/14/2015 for similar symptoms. She was noted to have a large pedunculated polyp in the distal sigmoid colon that was removed in a piecemeal fashion. The area was tattooed and Endoclips were placed. Another polyp was also removed from the transverse colon. Pathology of the transverse colon was tubular adenoma, no high-grade dysplasia; however, the larger polyp in the distal sigmoid showed focal minimal high-grade dysplasia and a tubulovillous adenoma. I recommended a repeat flexible sigmoidoscopy in 4-6 months, which was never done. She now has recent bleeding. Denies any abdominal pain at this time. She has been on Plavix, this has been held for the last 4-5 days. DESCRIPTION OF THE PROCEDURE: The risks and benefits of the procedure were explained to the patient, those risks including but not limited to bleeding, perforation and the risk of sedation. She understood these risks and gave informed consent. Sedation was given using propofol per anesthesia. Next, a digital rectal exam was initially performed, which was a small external hemorrhoids, otherwise normal. Next, using a standard Olympus colonoscope, the scope was placed in the patient's anus and advanced under direct vision to the cecum. The overall prep was good. The cecum and ileocecal valve were normal in appearance. The ascending colon was normal as well as the transverse colon. In the descending colon, there was a 5 mm sessile polyp. This was removed by snare cautery. Multiple diverticula were noted in the descending and sigmoid colon. Also noted again at the rectosigmoid and the distal sigmoid colon, there was a large pedunculated polyp. I suspect this is the site of the previous polypectomy. This was approximately 2.5 to 3 cm in size. I removed it in a piecemeal fashion by snare cautery. There was no bleeding, status post polypectomy; however, due to the size of the polypectomy site, 3 Endoclips were placed. No bleeding was noted. I then tattooed the base of the polypectomy site as well. The rectal mucosa was normal. On retroflexion, no abnormalities were noted. The scope was then withdrawn and the procedure terminated. The patient tolerated the procedure well. [address] [address] PROCEDURE REPORT Name: MADDENHUNTER ROLLE Room #: REG CRIST[facility]BAL Olson#: [id number] Admission: 05/31/19 Attend Phys: Triston Kang Discharge: Date of : 39 Report #: [id number] IMPRESSION: 1. Large pedunculated polyp in the distal sigmoid colon. Suspect this may be the same area that was removed 4 years ago. 2. Multiple diverticula in the left colon. No signs of bleeding. 3. Small descending colon polyp. 4. Small external hemorrhoids, nonbleeding. RECOMMENDATIONS: 1. Await biopsy results. 2. Suspect recent bright red blood per rectum is from large polyp that was removed today. 3. I would recommend repeating a flexible sigmoidoscopy in the next several months to confirm healing of the polypectomy site. I would hold her Plavix for the next week. Thank you for allowing me to participate in her care. <ELECTRONICALLY SIGNED> By: Triston Alonso MD 06/02/19 0923 1200 1920 Triston Alonso MD /nt
== END | disposition home or self-care (01) ==
LOC: GI 09:01 → TBA 09:07 → GI 15:06
DX: K62.5 Hemorrhage of anus and rectum (principal); D12.4 Benign neoplasm of descending colon; D12.5 Benign neoplasm of sigmoid colon; K57.30 Diverticulosis of large intestine without perforation or abscess without bleeding; K64.4 Residual hemorrhoidal skin tags; I13.0 Hypertensive heart and chronic kidney disease with heart failure and stage 1 through stage 4 chronic kidney disease, or unspecified chronic kidney disease; E11.22 Type 2 diabetes mellitus with diabetic chronic kidney disease; N18.9 Chronic kidney disease, unspecified; I50.9 Heart failure, unspecified; E78.00 Pure hypercholesterolemia, unspecified; I42.9 Cardiomyopathy, unspecified; I73.9 Peripheral vascular disease, unspecified; G62.9 Polyneuropathy, unspecified; I25.10 Atherosclerotic heart disease of native coronary artery without angina pectoris; Z98.890 Other specified postprocedural states; Z79.899 Other long term (current) drug therapy; Z79.4 Long term (current) use of insulin
CPT/HCPCS: 62110; 62900

== ENCOUNTER 2019-09-23 17:13 | Inpatient (IN) | payer OTHER ==
[~2019-09-23] VITALS: Ht 170.2 cm; Wt 80.5 kg
--- NOTE | ~2019-09-23 | H ---
[facility] [place] [address] HISTORY AND PHYSICAL Name: HUNTER MADDEN Room #: 170-1 ADM IN M.R.#: [id number] Admission: 09/23/19 Attend Phys: Chen Avalos MD Discharge: Date of : 37 Report #: [id number] THIS REPORT FOR: //name// CC: Chen Guzman DATE OF SERVICE: 09/23/2019 PRIMARY CARE PHYSICIAN: Dr. Guzman. CHIEF COMPLAINT: Cough and upper respiratory infection 2 weeks ago and followed by orthopnea, progressively worsening exertional dyspnea and bilateral lower extremity edema. HISTORY OF PRESENT ILLNESS: The patient is a very pleasant 84-year-old female with a known history of diabetes mellitus type 2, hypertension, hyperlipidemia as well as significant peripheral vascular disease and ischemic cardiomyopathy with ejection fraction of 35% and moderately severe mitral regurgitation and severe diastolic dysfunction history from the echo in 06/2017. The patient informs me that she initially started having flu-like illness with a cough. There was absolutely no fever, shaking chills or night sweats; however, she did have significant rhinorrhea and upper respiratory infection symptoms followed by cough, which progressively got worse. The patient informs me that the cough was then followed by worsening lower extremity edema as well as orthopnea and progressively worsening lower extremity edema. The patient denies any chest pain or palpitations; however, orthopnea was significant that she is absolutely not been able to lie down flat. It initially started 2 weeks ago, but now it is significantly worse. The patient was noted to be mild tachycardia along with normal oxygen saturation at rest when she arrived in the Emergency Room; however, with minimal activity as standing up and turning around would bring her oxygen levels go down and so she was placed on 2 liters of oxygen and IV Lasix was immediately given by ER provider for acute CHF exacerbation. The patient informs me that she also has significant polyuria, frequency, and urgency of urination as well. The patient denies any palpitations or chest pain, chest pressure or any referred pain and she informs me that she has been taking all her medications including spironolactone, 20 mg of Lasix and carvedilol as prescribed. PAST MEDICAL HISTORY: Significant for: 1. Diabetes mellitus type 2. 2. Known ischemic cardiomyopathy with severe left ventricular dysfunction with ejection fraction less than 20% in 2008, however 35% in 06/2017. 3. Hypertension. 4. Moderately severe mitral regurgitation. 5. Pulmonary artery hypertension. 6. Significant peripheral vascular disease. [address] [address] HISTORY AND PHYSICAL Name: HUNTER MADDEN Room #: 170-1 [facility] IN [facility]#: [id number] Admission: 09/23/19 Attend Phys: Chen Avalos MD Discharge: Date of : 37 Report #: [id number] 7. Hyperlipidemia. PAST SURGICAL HISTORY: Significant for: 1. 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 3. Left foot ankle surgery. 4. [place] in the femur. 5. Osteomyelitis of the right fifth toe. 6. Tonsillectomy. FAMILY HISTORY: Mother when the patient was 20 years old with a cerebral hemorrhage and father at the age of 74 years with cancer, which she does not know the diagnosis of. ALLERGIES: The patient has no known drug allergies. SOCIAL HISTORY: The patient is a lifetime nonsmoker and does not use alcohol and she is pretty independent in her activities of daily living as well as has adequate family support system. The patient informs me that her emergency contact and durable power of compliance attorney for health is her daughter, Zee, and she wishes to be full code. CURRENT MEDICATIONS: 1. Carvedilol. 2. Simvastatin. 3. Plavix. 4. Spironolactone. 5. Furosemide. 6. Insulin Levemir 15 units at bedtime. REVIEW OF SYSTEMS: CONSTITUTIONAL: No fever, chills or night sweats, but has had some malaise and flu-like symptoms. HEENT: Rhinorrhea and dry cough initially, which then converted to productive cough with clear sputum. No sore throat or sinus drainage. RESPIRATORY: Has cough with sputum production, exertional dyspnea, now has dyspnea at rest. CARDIOVASCULAR: Has orthopnea, bilateral lower extremity edema progressively worsening, unable to fit her shoes for last 1 week and orthopnea for the past 2 weeks progressively worsening. Denies any paroxysmal nocturnal dyspnea. GASTROINTESTINAL: Denies any nausea, vomiting, diarrhea or constipation, hematochezia or melena. GENITOURINARY: Denies any dysuria, hematuria, frequency or urgency of urination. MUSCULOSKELETAL: Has problems in her left lower extremity which always has given all kinds of trouble for surgeries, but no specific pain or discomfort. [facility] [address] [place] [address] HISTORY AND PHYSICAL Name: HUNTER MADDEN Room #: 170-1 ADM IN M.R.#: [id number] Admission: 09/23/19 Attend Phys: Chen Avalos MD Discharge: Date of : 37 Report #: [id number] SKIN: No rash. NEUROLOGICAL: On review of neurological review of system, patient denies any headache or dizziness or weakness or numbness of any part of the body. PHYSICAL EXAMINATION: VITAL SIGNS: When the patient presented to the ER, temperature 36.8, heart rate 66, respirations 21, blood pressure 149/57 with pulse oximeter 92% and the admission weight was 74.84 kilos. GENERAL: Alert and oriented to time, place and person, very pleasant 84-year-old female who appears her stated age and has 93% on 2 liters of oxygen by nasal cannula and is in no acute cardiopulmonary distress as long as she is sitting upright and is associated with intermittent cough productive of clear sputum. HEENT: Normocephalic, atraumatic. Pupils are equally round and reactive to light. Extraocular muscle movements are intact. Conjunctivae clear. Sclerae nonicteric. Oropharynx clear. No mucous membrane. No postnasal drip noted. The patient does have oropharynx with mild erythema, no exudate noted. Some petechia noted in the oropharynx as well consistent with viral infection. NECK: Supple. JVD noted. No lymphadenopathy or thyromegaly noted. HEART: S1, S2, regular. There is diastolic murmur present and no tachycardia noted. The patient has no S3 or S4 appreciated. LUNGS: Crackles bilaterally both lower lung field and axillary region as well as posteriorly, but bilaterally symmetrical chest expansion present. ABDOMEN: Soft, nontender, nondistended, normal active bowel sounds. SKIN: The patient has a very mild macular rash consistent with fungal infection in the inframammary as well as groin area which is very minimal and the patient has been using some nystatin powder noted during exam. EXTREMITIES: The patient has amputation of the left great toe as well as amputation of the right fifth toe and a well-healed scar of prior ankle surgery noted as well as left leg surgery noted. The patient has significant edema of both lower extremities with 2+ pitting edema up to the knee joint bilaterally and a shoe marking on the feet noted with sharply demarcated lines, but no skin breakdown or erythema or induration noted. NEUROLOGIC: Completely nonfocal with the patient able to move all 4 extremities and cranial nerves 2 through 12 intact. LABORATORY DATA AND X-RAYS: The patient has electrocardiogram shows sinus rhythm with no ST-T elevation. Labs indicate beta natriuretic peptide is 5754. Sodium 140, potassium 4.7, chloride 103, bicarbonate 34, anion gap 3, BUN 26, creatinine 1.1, GFR 48, glucose 152, AST 22, ALT 26, alkaline phosphatase 77. Troponin I less than 0.06. Total protein 7.2, albumin 3.3. Hematology indicates normal WBC count 7.2, hemoglobin 14.2, hematocrit 43.5 and platelet count 182 with segmented neutrophil elevated at 79%. No bandemia noted. Influenza type A and type B are negative. Chest x-ray shows pulmonary vascular congestion as well as bilateral interstitial and airspace opacities suspicious of pulmonary edema, cardiomegaly and right-sided pleural effusion noted. Pulse [facility] [address] [place] [address] HISTORY AND PHYSICAL Name: HUNTER MADDEN Room #: 170-1 ADM IN M.R.#: [id number] Admission: 09/23/19 Attend Phys: Chen Avalos MD Discharge: Date of : 37 Report #: [id number] oximetry at room air was 92% when she arrived, with minimal activity it was going down below 90%, so 2 liters of oxygen was placed by nasal cannula. ASSESSMENT: 1. Acute congestive heart failure exacerbation. 2. Bronchitis/upper respiratory infection with pharyngitis. 3. Moderately severe mitral regurgitation. 4. Diabetes mellitus type 2. 5. Chronic kidney disease with GFR ranging between 30-54 from prior lab records and today GFR is 48. 6. Hyperlipidemia. 7. Peripheral vascular disease. PLAN: 1. The patient is being admitted to CCU with acute CHF exacerbation, systolic as well as diastolic and IV Lasix has been started and will do accurate intake and output and daily weight. Cardiology has been consulted. We will go ahead and get echocardiogram tomorrow for followup of ejection fraction as well as diastolic dysfunction. The patient understands plan of care. We will go ahead and continue Plavix that she takes at home and for DVT prophylaxis, we will put heparin 5000 t.i.d. TSH has been requested and we will go ahead and do a hemoglobin A1c as well, but the patient has a history of very well controlled diabetes in past and patient does not have any other cardiac symptoms of chest pain or chest pressure, but the troponin is negative; however, we will go ahead and do 3 sets of troponin q. 3 hours. 2. Diabetes mellitus type 2. Accu-Cheks q.i.d. a.c. and at bedtime and will use sliding scale insulin for now and hold Levemir depending on what the patient is able to eat. 3. Bronchitis and upper respiratory infection with possible community-acquired infection. We will go ahead and give Rocephin and azithromycin and we will go ahead and do a strep pneumo antigen as well as strep throat because of the pharyngeal erythema. We will give Rocephin empirically. The patient does not have any history of COPD or asthma and will write for p.r.n. breathing treatments as needed. 4. For GI prophylaxis, we will do Pepcid renal dosing and DVT prophylaxis heparin. 5. We will follow up with a chest x-ray, PA and lateral tomorrow morning. Plan of care was discussed with the patient in detail and also the family member present at the bedside and a full code order has been written. By: [id number] Chen Avalos MD /nt
[2019-09-23 17:14] VITALS: BP 149/57
[2019-09-23 17:40] LABS: ABSOLUTE NEUTROPHILS 5.7 thou/uL (1.4-8.2); BASOPHILS 0.8 % (0.0-2.0); EOSINOPHILS 0.9 % (0.0-3.0); HEMATOCRIT 43.5 % (37.0-47.0); HEMOGLOBIN 14.2 gm/dL (12.0-15.0); MCH 29.6 pg (26.0-34.0); MCHC 32.7 g/dL (28.0-37.0); MCV 90.4 fL (80.0-100.0); MONOCYTES 6.4 % (1.0-8.0); PLATELET COUNT 182 thou/uL (150-400); POLYS 78.9 % (36.0-66.0); RBC 4.81 mil/uL (4.20-5.00); RDW 15.1 % (10.5-14.5); WBC 7.2 thou/uL (4.0-11.0)
[2019-09-23 17:46] LABS: ANION GAP 3 mmol/L (7-16); BUN 26 mg/dL (7-18); CALCIUM 8.7 mg/dL (8.5-10.1); CHLORIDE 103 mmol/L (98-107); CO2 34 mmol/L (21-32); CREATININE 1.1 mg/dL (0.6-1.0); GLUCOSE 152 mg/dL (74-106); POTASSIUM 4.7 mmol/L (3.5-5.1); SODIUM 140 mmol/L (136-145)
[2019-09-23 17:56] LABS: ALBUMIN 3.3 g/dL (3.4-5.0); SGOT 22 U/L (15-37); SGPT 26 U/L (30-65); TOTAL BILIRUBIN 0.8 mg/dL (<0.1-1.0); TOTAL PROTEIN 7.2 g/dL (6.4-8.2); TROPONIN-I <0.06 ng/mL (<0.06)
[2019-09-23 20:05] LABS: URINE BILIRUBIN NEGATIVE (Negative); URINE BLOOD TRACE (Negative); URINE CLARITY CLEAR; URINE COLOR YELLOW; URINE GLUCOSE-RANDOM* NEGATIVE (Negative); URINE KETONES NEGATIVE (Negative); URINE LEUKOCYTES-REFLEX NEGATIVE (Negative); URINE NITRITE-REFLEX NEGATIVE (Negative); URINE PROTEIN (DIPSTICK) NEGATIVE (Negative); URINE UROBILINOGEN 0.2 E.U./dl (0.2-1.0)
[2019-09-23 20:51] VITALS: BP 154/72
[2019-09-23 22:28] VITALS: BP 133/58
[2019-09-24 02:09] VITALS: BP 133/58
[2019-09-24 04:06] VITALS: BP 145/71
[2019-09-24 05:26] LABS: ABSOLUTE NEUTROPHILS 4.3 thou/uL (1.4-8.2); BASOPHILS 0.7 % (0.0-2.0); EOSINOPHILS 1.3 % (0.0-3.0); HEMATOCRIT 40.3 % (37.0-47.0); HEMOGLOBIN 13.1 gm/dL (12.0-15.0); LYMPHOCYTES 18.3 % (24.0-44.0); MCH 29.3 pg (26.0-34.0); MCHC 32.6 g/dL (28.0-37.0); MONOCYTES 11.2 % (1.0-8.0); PLATELET COUNT 163 thou/uL (150-400); POLYS 68.5 % (36.0-66.0); RBC 4.48 mil/uL (4.20-5.00); RDW 14.8 % (10.5-14.5); WBC 6.3 thou/uL (4.0-11.0)
[2019-09-24 06:02] LABS: ANION GAP 4 mmol/L (7-16); BUN 26 mg/dL (7-18); CALCIUM 8.7 mg/dL (8.5-10.1); CHLORIDE 102 mmol/L (98-107); CO2 34 mmol/L (21-32); CREATININE 1.2 mg/dL (0.6-1.0); GLUCOSE 136 mg/dL (74-106); PHOSPHORUS 3.4 mg/dL (2.5-4.9); POTASSIUM 4.4 mmol/L (3.5-5.1); SODIUM 140 mmol/L (136-145); TROPONIN-I <0.06 ng/mL (<0.06)
--- NOTE | 2019-09-24 07:38 | NUR ---
PT LATE EVENING ADMISSION FROM ER. BO IN PLACE FOR STRICT I/0 WITH 2300ML OVERNIGHT. BLLE+3. PT STATES SHE HAS BEEN WEAK FOR 2 WEEKS. PT PLACED ON FALL PRECAUTIONS. VSS WITH HR IN THE 50'S AND UP. HOURLY ROUNDING.
[2019-09-24 07:48] VITALS: BP 140/71
--- NOTE | 2019-09-24 08:52 | EKG ---
[facility] [place] [address] ELECTROCARDIOGRAM REPORT Name: HUNTER MADDEN Room #: 356-P ADM IN M.R.#: [id number] Admission: 09/23/19 Attend Phys: Chen Avalos MD Discharge: Date of : 39 Report #: [id number] THIS REPORT FOR: cc: Adalgisa Guzman MD, Nora P. MD Couchonnal, Luis F. MD ~ THIS REPORT FOR: //name// [facility] ED Test Date: 2019-09-23 Test Time: 17:20:14 Pat Name: HUNTER MADDEN Department: Room: 356 Gender: F Floor Molder: DES : 1935 Requested By: Jazmín Rodriguez Order Number: [id number] MD: Carter Ledezma Measurements Intervals [place] Rate: 57 P: 101 CT: 140 QRS: 74 QRSD: 129 T: 27 QT: 434 QTc: 423 Interpretive Statements Sinus rhythm Nonspecific intraventricular conduction delay Anteroseptal infarct, old Compared to ECG 09/13/2012 02:46:40 Myocardial infarct finding now present Sinus bradycardia no longer present T-wave abnormality no longer present Possible ischemia no longer present Electronically Signed On 09-24-2019 8:51:46 MAKE UP EDITOR by Carter Ledezma [email or web address] <ELECTRONICALLY SIGNED> By: Carter Ledezma MD 09/24/19 0851 19 19 Carter Ledezma MD /EPI
[2019-09-24 15:33] VITALS: BP 141/113
[2019-09-25 01:10] LABS: GLYCOHEMOGLOBIN (HGB A1C) 6.9 % (4.8-5.6)
[2019-09-25 04:26] VITALS: BP 133/62
--- NOTE | 2019-09-25 07:12 | NUR ---
ASSUMED PT CARE AT 1900. VSS. PT A&0X4. PT'S BLE EDEMA IS DECREASING; NOW AT 1+. ASSESSMENTS AND MEDS GIVEN ARE CHARTED. PT SLEPT WELL ALL NIGHT. DIURESING WELL; HAD 1150 OUT THIS SHIFT. PT IS STABLE, AND PROGRESSING WEEL TOWARDS HER POC.
[2019-09-25 07:23] VITALS: BP 136/72
[2019-09-25 08:45] LABS: ALBUMIN 3.1 g/dL (3.4-5.0); CALCIUM 8.8 mg/dL (8.5-10.1); CREATININE 1.5 mg/dL (0.6-1.0); TOTAL BILIRUBIN 0.7 mg/dL (<0.1-1.0); TOTAL PROTEIN 6.7 g/dL (6.4-8.2)
--- NOTE | 2019-09-25 12:12 | 2DMMODE ---
[facility] [place] [address] 2 D/M-MODE ECHOCARDIOGRAM Name: HUNTER MADDEN Room #: 356-P ADM IN M.R.#: [id number] Admission: 09/23/19 Attend Phys: Chen Avalos MD Discharge: Date of : 37 Report #: [id number] THIS REPORT FOR: cc: Adalgisa Guzman MD, Nora P. MD Lammoglia, Francisco J. MD ~ APPROVED REPORT Study performed: 09/25/2019 11:23:08 EXAM: Comprehensive 2D, Doppler, and color-flow Echocardiogram Patient Location: Bedside Room #: 356 Status: routine BSA: 1.92 HR: 70 bpm BP: 136/72 mmHg Rhythm: Sinus arrhythmia Other Information Study Quality: Adequate Indications Shortness of breath, edema. Acute on chronic CHF with severe diastolic dysfunction. Hx: CHF, CAD, PVD, HTN, HLP, DM. 2D Dimensions RVDd: 30.62 mm IVSd: 11.00 (7-11mm) LVOT Diam: 19.66 (18-24mm) LVDd: 59.45 mm PWd: 9.32 (7-11mm) Ascending Ao: 33.91 (22-36mm) LVDs: 49.38 (25-40mm) Aortic Root: 31.55 mm Volumes Left Atrial Volume (Systole) Single Plane 4CH: 54.35 mL Single Plane 2CH: 77.66 mL Aortic Valve AoV Peak David.: 1.36 m/s AO Peak Gr.: 7.37 mmHg LVOT Max P.80 mmHg LVOT Max V: 0.97 m/s EDUAR Vmax: 2.18 cm2 [facility] [address] [place] [address] 2 D/M-MODE ECHOCARDIOGRAM Name: HUNTER MADDEN Room #: 356-[facility].#: [id number] Admission: 09/23/19 Attend Phys: Chen Avalos, Discharge: Date of : 37 Report #: [id number] Mitral Valve E/A Ratio: 1.6 MV Decel. Time: 177.16 ms MV E Max David.: 1.13 m/s MV A David.: 0.70 m/s MV PHT: 51.38 ms IVRT: 78.43 ms Pulmonary Valve PV Peak David.: 1.00 m/s PV Peak Gr.: 3.99 mmHg Pulmonary Vein P Vein S: 0.38 m/s P Vein A: 0.26 m/s P Vein D: 0.50 m/s P Vein A Dur.: 133.8 msec P Vein S/D Ratio: 0.76 Tricuspid Valve RAP Estimate: 5.00 mmHg Left Ventricle Left ventricle is mildly dilated. Regional wall motion abnormalities are noted. There is normal left ventricular wall thickness. Left ventricular systolic function is moderately decreased. LVEF is 35-40%. Severe diastolic dysfunction is present (restrictive filling). Right Ventricle The right ventricle is normal size. The right ventricular systolic function is normal. Atria Left atrium is mildly dilated. The right atrium size is normal. Aortic Valve The aortic valve is normal in structure; mildly calcified leaflets. No aortic regurgitation is present. There is no aortic valvular stenosis. Mitral Valve The mitral valve is normal in structure. Mildly calcified leaflets. Severe mitral regurgitation; eccentric jet. Tricuspid Valve The tricuspid valve is normal in structure. There is no tricuspid [facility] [address] [place] [address] 2 D/M-MODE ECHOCARDIOGRAM Name: HUNTER MADDEN Room #: 356-P [facility] IN M.R.#: [id number] Admission: 09/23/19 Attend Phys: Chen Avalos, Discharge: Date of : 37 Report #: [id number] valve regurgitation noted. Unable to assess PA pressure. Pulmonic Valve The pulmonary valve is normal in structure. Trace pulmonic regurgitation. Great Vessels The aortic root is normal in size. The ascending aorta is normal in size. IVC is normal in size and collapses >50% with inspiration. Pericardium There is no pericardial effusion. <Conclusion> Left ventricle is mildly dilated. LVEF is 35-40%. Regional wall motion abnormalities are noted. Left atrium is mildly dilated. The aortic valve is normal in structure; mildly calcified leaflets. The mitral valve is normal in structure. Mildly calcified leaflets. Severe mitral regurgitation; eccentric jet. The tricuspid valve is normal in structure. There is no tricuspid valve regurgitation noted. Unable to assess PA pressure. The pulmonary valve is normal in structure. Trace pulmonic regurgitation. There is no pericardial effusion. <ELECTRONICALLY SIGNED> By: Alber Durand MD 09/25/19 1210 1210 121 Alber Durand MD /INF
--- NOTE | 2019-09-25 12:48 | NUR ---
Nutrition: Pt assessed d/t diet instruction consult. Admit d/t SOA for past 2 weeks starting with upper respiratory cold symptoms. Hx CAD, DM, CKD, PVD, hypercholesterolemia. Edema present on admit and resolving with lasix. HgA1c: 6.9. Sliding scale insulin, clopidrogel, IV Abx, atorvastatin. Intake between 50-80% over admit, states she has a good appetite but was worried about eating some of the foods she knows are high in sugar (did not have carb control diet at that time). Did not report recent weight loss. Wt down from 190# on admit to 178#. Negative fluid balance around 2.4 L past 2 days d/t diuresis. Discussed low sodium diet upon returning home. See RD Education note. Consider to be low nutrition risk.
--- NOTE | 2019-09-25 15:01 | NUR ---
Pt care taken over at 0700. Pt alert and oriented X4. pT UP IN CHAIR. DENIES PAIN, NAUSEA AND VOMITING. Nasal cannula oxygen discontinued, pt O2 SAT 97%. Call light and table close to reach. Will continue to monitor.
[2019-09-25 16:16] VITALS: BP 126/58
--- NOTE | 2019-09-25 16:33 | NUR ---
INITIAL ASSESSMENT: Received consult due to pt with CHF dx. CAROLINA reviewed chart and spoke with nursing and attending physician. Pt was admitted from home due to exacerbation of CHF. Pt is currently on IV lasix. CAROLINA met with pt at bedside. Introduced role of SW. Pt is alert/orientated x 4. Pt reports she lives at home alone. Pt lives in two-level house. Pt has chair lifts and walkers throughout the home. [facility]. Pt's PCP is Dr. Adalgisa Guzman. Pt states her plan is to return home and does not anticipate needing anything at time of discharge. Pt's family will be able to provide transportation home. SW is following to assist as needed with discharge planning.
[2019-09-25 20:10] VITALS: BP 106/46
[2019-09-26 04:21] VITALS: BP 135/69
[2019-09-26 08:07] VITALS: BP 129/57
--- NOTE | 2019-09-26 10:19 | NUR ---
Pt care taken over at 0700. Alert and oriented X4. Denies any chest pain, nausea and vomiting. Assessment completed. Pt in sinus arrhythmia, HR 67 Pt back on Oxygen 1L via nasal cannula. Deneis any other needs. Call light and table within reach. Bed alarm on. Will continue to monitor.
[2019-09-26] MEDS ORDERED: SPIRONOLACTONE25 M1 PO (12:08)
[2019-09-26] MEDS ORDERED: MUCINEX600 MG PO (12:08)
[2019-09-26] MEDS ORDERED: ACETAMINOPHEN325 M1 PO (12:08)
[2019-09-26] MEDS ORDERED: DEMADEX20 MG PO (12:08)
[2019-09-26] MEDS ORDERED: METOPROLOL SUCC25 M1 PO (12:08)
[2019-09-26] MEDS ORDERED: PROVENTIL HFA6.7 G1 INH (12:08)
[2019-09-26] MEDS ORDERED: COZAAR 25 MG TA25 M1 PO (12:08)
[2019-09-26] MEDS ORDERED: CEFUROXIME500 MG PO (12:08)
[2019-09-26 12:57] VITALS: BP 129/57
--- NOTE | 2019-09-26 14:27 | NUR ---
DISCHARGE NOTE: SW reviewed chart and spoke with nursing and attending physician. Pt is medically stable for discharge home today. Orders written for HH services. SW met with pt at bedside to provide update and discuss discharge plan. Pt declines HH at this time. Pt's family to provide transportation home later today. SW updated pt's nurse and attending physician. No SW needs identified at this time, but is available to assist should needs arise.
--- NOTE | 2019-09-26 14:31 | NUR ---
Pt discharge paer work, medication information, fluid and salt restriction education done with pt daughter in the room. IV and colindres taken out. Pt taken down via wheelchair. daughter with pt.
== END 2019-09-26 14:51 | disposition home or self-care (01) | DRG 291 ==
LOC: ER 17:13 → 3W 18:41 → EROBS 18:41 → 3W 22:41 → ENTRNSPT 09-26 14:39 → EDTRNSPTSTS 09-26 14:41 → 3W 09-26 14:51
PROVIDERS: Nurse Practitioner Adult Health; Nurse Practitioner Family; ADMIT Internal Medicine
DX: I13.0 Hypertensive heart and chronic kidney disease with heart failure and stage 1 through stage 4 chronic kidney disease, or unspecified chronic kidney disease (principal); I50.43 Acute on chronic combined systolic (congestive) and diastolic (congestive) heart failure; J18.9 Pneumonia, unspecified organism; N17.0 Acute kidney failure with tubular necrosis; I47.1 Supraventricular tachycardia; J40 Bronchitis, not specified as acute or chronic; I34.0 Nonrheumatic mitral (valve) insufficiency; N28.9 Disorder of kidney and ureter, unspecified; E11.51 Type 2 diabetes mellitus with diabetic peripheral angiopathy without gangrene; I25.5 Ischemic cardiomyopathy; E11.40 Type 2 diabetes mellitus with diabetic neuropathy, unspecified; I25.10 Atherosclerotic heart disease of native coronary artery without angina pectoris; E78.00 Pure hypercholesterolemia, unspecified; G47.00 Insomnia, unspecified; E78.5 Hyperlipidemia, unspecified; I27.20 Pulmonary hypertension, unspecified; J02.9 Acute pharyngitis, unspecified; E11.22 Type 2 diabetes mellitus with diabetic chronic kidney disease; K59.00 Constipation, unspecified; N18.3 Chronic kidney disease, stage 3 (moderate); Z60.2 Problems related to living alone; I25.2 Old myocardial infarction; Z89.422 Acquired absence of other left toe(s); Z79.4 Long term (current) use of insulin; Z89.412 Acquired absence of left great toe; Z89.421 Acquired absence of other right toe(s); Z79.899 Other long term (current) drug therapy; Z79.02 Long term (current) use of antithrombotics/antiplatelets; Z80.8 Family history of malignant neoplasm of other organs or systems; Z82.3 Family history of stroke; Z91.14 Patient's other noncompliance with medication regimen
CPT/HCPCS: 10879

== ENCOUNTER → 2019-10-25 | Outpatient (CLI) | payer OTHER ==
[~2019-10-25] MED LIST changes: +ACETAMINOPHEN325 M1 PO; +CEFUROXIME500 MG PO; +COZAAR 25 MG TA25 M1 PO; +DEMADEX20 MG PO; +METOPROLOL SUCC25 M1 PO; +MUCINEX600 MG PO; +PROVENTIL HFA6.7 G1 INH
== END ==
LOC: SJCVCIMAG 10:56
DX: R00.0 Tachycardia, unspecified (principal); E78.5 Hyperlipidemia, unspecified; J44.9 Chronic obstructive pulmonary disease, unspecified; F17.200 Nicotine dependence, unspecified, uncomplicated; Z79.82 Long term (current) use of aspirin; Z79.899 Other long term (current) drug therapy

== ENCOUNTER → 2020-01-30 | Outpatient (CLI) | payer OTHER | LOC: SJCVCIMAG 07:30 | PROVIDERS: ATTEND Internal Medicine Cardiovascular Disease | DX: R94.31 Abnormal electrocardiogram [ECG] [EKG] (principal); I08.3 Combined rheumatic disorders of mitral, aortic and tricuspid valves; R00.1 Bradycardia, unspecified; I25.10 Atherosclerotic heart disease of native coronary artery without angina pectoris; I42.9 Cardiomyopathy, unspecified; I10 Essential (primary) hypertension; I73.9 Peripheral vascular disease, unspecified; E11.9 Type 2 diabetes mellitus without complications; Z79.4 Long term (current) use of insulin ==

== ENCOUNTER 2020-08-10 08:05 | Inpatient (IN) | payer OTHER ==
[~2020-08-10] VITALS: Ht 170.2 cm; Wt 82.6 kg
[2020-08-10] VITALS (7 sets, daily range): BP systolic 125–153; BP diastolic 56–88
--- NOTE | ~2020-08-10 | EMS ---
[address] [address] EMS Patient Care Report Name: HUNTER MADDEN [id number] Admission: 08/10/20 Attend Phys: Discharge: Date of : 37 Report #: [id number] THIS REPORT FOR: //name// Report Transmitted: 08/10/2020 07:48 EMS Care Summary [facility] Incident [id number] @ 08/10/2020 07:09 Incident Location [address] [place] [address] Patient HUNTER MADDEN Female, 85 Years 1935 Patient Address [address] [place] [address] Patient History Hypertension (HTN),Hyperlipidemia, Patient Allergies No known allergies, Patient Medications Simvastatin, Plavix, Lasix, Chief Complaint my hip hurts Disposition Transported No Lights/[place] Reason [place] Transported To [facility] Narrative This crew arrives to find the pt sitting on a toilet in an upstairs room of this residence. She appears alert and in severe pain. S47 is on scene The pt states that she was transferring from her walker to the her toilet when she "fell" to the toilet. No striking her head or falling to the ground, [address] [address] EMS Patient Care Report Name: HUNTER MADDEN Room #: REG Whitney#: [id number] Admission: 08/10/20 Attend Phys: Discharge: Date of : 37 Report #: [id number] falling onto her bottom a short distance to the top of the toilet. The pt then felt a sharp on setof 10/10 pain to her right hip. No further acute pain or trauma reported or found on exam. The right leg is noted to be shorter with external rotation. The pain is worse with movement. Distal pulses and sensation present. Multiple IV attempts fail and the pt is given IM Fentanyl prior to moving with minimal relief. She is lifted from the toilet to the stair chair, moved with it to the cot in her living room. Lifted from that to the cot, secured in a position of relative comfort and moved to the ambulance, all without incident. No change in condition en route. B/P readings time out during transport. The pt is moved to ER bed without incident, repot and care given to BRENDA Zapien. Initial Vitals @07:54P: 47,SpO2: 98, @07:51P: 54,BP: 157/80,SpO2: 97, @07:25P: 84,R: 24,BP: 156/91,Pain: 10/10,GCS: 15,SpO2: 98,Revised Trauma: 12, @07:53P: 48,SpO2: 97, @07:56P: 49,Pain: 8/10,Temp: 98F,SpO2: 98, Assessments @07:35MENTAL:Person Oriented,Time Oriented,Place Oriented,Event Oriented,SKIN:HEENT:Head/Face: No Abnormalities,LUNG SOUNDS:General: No Abnormalities,ABDOMEN:General: No Abnormalities,PELVIS//GI:Pelvis Other,EXTREMITIES:Right Leg: Other,Left Arm: No Abnormalities,Right Arm: No Abnormalities,Left Leg: No Abnormalities,PULSE:NEURO:No Abnormalities, Impression Injury of Hip Procedures @PTASurgical Mask on PatientResponse: Unchanged@07:27Saline Lock cc (20 ga) Site: Hand-RightResponse: UnchangedFailed@07:30Saline Lock cc (20 ga) Site: Hand-LeftResponse: UnchangedFailed@07:34Saline Lock cc (20 ga) Site: Forearm-LeftResponse: UnchangedFailed@07:37Fentanyl - 100 Micrograms (mcg) - Intramuscular (IM)Response: Improved Timeline CLOTH BEAMER,Surgical Mask on Patient,Response: Unchanged 07:07,Call Received 07:07,Psap Call 07:09,Dispatched 07:10,En Route 07:20,On Scene 07:24,At Patient 07:25,BP: 156/91 M,PULSE: 84,RR: 24 R,SPO2: 98 Ox,ETCO2: ,BG: ,PAIN: 10,GCS: 15, [address] [address] EMS Patient Care Report Name: HUNTER MADDEN Room #: REG Whitney#: [id number] Admission: 08/10/20 Attend Phys: Discharge: Date of : 37 Report #: [id number] 07:27,Saline Lock cc 20 ga Site: Hand-Right,Response: UnchangedFailed, 07:30,Saline Lock cc 20 ga Site: Hand-Left,Response: UnchangedFailed, 07:34,Saline Lock cc 20 ga Site: Forearm-Left,Response: UnchangedFailed, 07:37,Fentanyl - 100 Micrograms (mcg) - Intramuscular (IM),Response: Improved 07:50,Depart Scene 07:51,BP: 157/80 M,PULSE: 54,RR: R,SPO2: 97 Ox,ETCO2: ,BG: ,PAIN: ,GCS: , 07:53,BP: / M,PULSE: 48,RR: R,SPO2: 97 Ox,ETCO2: ,BG: ,PAIN: ,GCS: , 07:54,BP: / M,PULSE: 47,RR: R,SPO2: 98 Ox,ETCO2: ,BG: ,PAIN: ,GCS: , 07:56,At Destination 07:56,BP: / M,PULSE: 49,RR: R,SPO2: 98 Ox,ETCO2: ,BG: ,PAIN: 8,GCS: , 08:12,Call Closed Disclaimer v1.1 Copyright 2020 [employer] This EMS Care Summary contains data elements from the applicable legal record (which may be displayed differently). It is designed to provide pertinent information for the following purposes: continuity of care, clinical quality, and state data reporting. The complete legal record is available to ED staff and administrators of the receiving hospital in ES's Patient Tracker. All data is provided "as is."
[2020-08-10 08:46] LABS: BASOPHILS 0.7 % (0.0-2.0); EOSINOPHILS 1.7 % (0.0-3.0); HEMATOCRIT 43.2 % (37.0-47.0); HEMOGLOBIN 14.1 gm/dL (12.0-15.0); LYMPHOCYTES 23.5 % (24.0-44.0); MCH 29.7 pg (26.0-34.0); MCHC 32.7 g/dL (28.0-37.0); MCV 90.7 fL (80.0-100.0); MONOCYTES 6.8 % (1.0-8.0); PLATELET COUNT 163 thou/uL (150-400); POLYS 67.3 % (36.0-66.0); RBC 4.76 mil/uL (4.20-5.00); WBC 7.4 thou/uL (4.0-11.0)
[2020-08-10 08:51] LABS: APTT 23.8 Seconds (24.5-32.8); PROTIME 10.6 Seconds (9.3-11.4)
[2020-08-10 09:02] LABS: CALCIUM 9.4 mg/dL (8.5-10.1); CREATININE 1.3 mg/dL (0.6-1.0); POTASSIUM 4.3 mmol/L (3.5-5.1)
[2020-08-10 09:05] LABS: ALBUMIN 3.3 g/dL (3.4-5.0); TOTAL BILIRUBIN 0.4 mg/dL (0.2-1.0)
[2020-08-10 09:16] LABS: URINE BILIRUBIN NEGATIVE (Negative); URINE BLOOD NEGATIVE (Negative); URINE CLARITY CLEAR; URINE COLOR YELLOW; URINE GLUCOSE-RANDOM* NEGATIVE (Negative); URINE KETONES NEGATIVE (Negative); URINE LEUKOCYTES-REFLEX NEGATIVE (Negative); URINE NITRITE-REFLEX NEGATIVE (Negative); URINE PROTEIN (DIPSTICK) NEGATIVE (Negative); URINE UROBILINOGEN 0.2 E.U./dl (0.2-1.0)
--- NOTE | 2020-08-10 12:03 | NUR ---
CALLED TO GIVE REPORT ON PT. AITED ON HOLD FOR 9 MINUTES, HUNG UP. WILL TRY AGAIN IN A FEW MINS
--- NOTE | 2020-08-10 12:22 | EKG ---
[address] [address] ELECTROCARDIOGRAM REPORT Name: HUNTER MADDEN Room #: 170-8 ADM IN M.R.#: [id number] Admission: 08/10/20 Attend Phys: Chen Avalos MD Discharge: Date of : 37 Report #: [id number] [facility] ED Test Date: 2020-08-10 Test Time: 08:32:16 Pat Name: HUNTER MADDEN Department: Room: 170 Gender: F Tube Depatcher: DEEPAK : 1935 Requested By: Caleb Lyn Order Number: [id number] MD: Carter Ledezma Measurements Intervals [place] Rate: 49 P: 18 DC: 218 QRS: 36 QRSD: 125 T: 79 QT: 444 QTc: 401 Interpretive Statements Sinus bradycardia Paired ventricular premature complexes Nonspecific intraventricular conduction delay Nonspecific T abnormalities, lateral leads Electronically Signed On 08-10-2020 12:21:58 MACHINE TOOL DRESSER by Carter Ledezma [email or web address] <ELECTRONICALLY SIGNED> By: Carter Ledezma MD 08/10/20 1221 0832 1 MD ADELINE Lora
--- NOTE | 2020-08-10 15:26 | NUR ---
PT ADMITTED FROM THE ER AT 1330. A&Ox4. PT IN A LOT OF PAIN AND SCREAMING. PIAN MEDICATION ADMISNISTERED AND PAIN RESOLVED. EKG DONE. AWAITING TROPONIN RESULTS. ACHS. ORTHO SONSULTED. SURGERY TOMORROW. WILL NEED TO BE NPO AT MIDNIGHT. CARIOLOGY CONSULTED FOR SURGERY CLEARANCE. DR LIVINGSTON HAS SEEN PT. PT CLEARED. BO IN PLACE FOR IMMOBILIZATION. COVID SWABBED, RESULTS NEGATIVE. IV ARE PATENT WITH NO REDNESS OR SWELLING, SALINE LOCKED. PT/OT CONSULTED. PT REFUSES GERIATRIC CONSULT AND TO NOT BE FOLLOWED BY THIS GROUP. PT ADMITTING STATUS CHANGED TO MEDSURGE TELE. CONTINUES PULSEOX. PLAVIX ON HOLD. SCD'S IN PLACE. FALL PROTOCOL IN PLACE. CALL LIGHT IN REACH. WILL CONTINUE TO MONITOR.
--- NOTE | 2020-08-11 04:26 | NUR ---
VSS-AFEBRILE. INTENSE RIGHT LEG PAIN THROUGHOUT NIGHT, IV DILAUDID PROVIDED SOME RELIEF. LUNGS CLEAR-ROOM AIR. DRAINING ADEQUATE AMOUNTS OF URINE TO DEPENDENT DRAINAGE BAG. NPO AFTER MIDNIGHT FOR ORIF OF RIGHT LEG TODAY. TURNED FREQUENTLY TOLERATED FOR COMFORT. FALL PRECAUTIONS IN PLACE, CALLS APPROPRIATELY FOR ANY NEEDED ASSISTANCE.
[2020-08-11 04:54] LABS: BE(vivo) -1.1 mmol/L (-2 to +3); HCO3 25.6 mmol/L (22.0-26.0); PO2 156.7 mmHg (80.0-100.0); sO2 98.8 % (92.0-98.0)
[2020-08-11 04:55] LABS: ABSOLUTE NEUTROPHILS 11.5 thou/uL (1.4-8.2); BASOPHILS 0.3 % (0.0-2.0); HEMATOCRIT 37.7 % (37.0-47.0); HEMOGLOBIN 12.3 gm/dL (12.0-15.0); LYMPHOCYTES 5.5 % (24.0-44.0); MCH 29.8 pg (26.0-34.0); MCHC 32.7 g/dL (28.0-37.0); MONOCYTES 6.4 % (1.0-8.0); PLATELET COUNT 154 thou/uL (150-400); POLYS 87.8 % (36.0-66.0); RBC 4.14 mil/uL (4.20-5.00); RDW 13.8 % (10.5-14.5); WBC 13.1 thou/uL (4.0-11.0)
[2020-08-11 04:55] LABS: pH 7.319 (7.360-7.450)
[2020-08-11 05:11] LABS: ALBUMIN 3.2 g/dL (3.4-5.0); CALCIUM 8.9 mg/dL (8.5-10.1); CREATININE 1.6 mg/dL (0.6-1.0); MAGNESIUM 2.3 mg/dL (1.8-2.4); PHOSPHORUS 5.5 mg/dL (2.6-4.7); POTASSIUM 5.2 mmol/L (3.5-5.1); TOTAL BILIRUBIN 0.8 mg/dL (0.2-1.0); TOTAL PROTEIN 6.2 g/dL (6.4-8.2)
[2020-08-11 08:20] VITALS: BP 103/63
--- NOTE | 2020-08-11 08:26 | NUR ---
0430-TELEMETRY ALARMED ASYSTOLE. STAFF ENTERED PATIENT ROOM AND FOUND PATIENT NOT BREATHING AND WITHOUT A PULSE. CODE BLUE WAS ACTIVATED, CPR IMMEDIATELY STARTED. NARCAN ADMINISTERED WELL ATROPINE. NON RE BREATHER PLACED. AFTER SEVERAL MINUTES, PULSE RETURNED WELL SPONTANEOUS BREATHING. PATIENT IS CURRENTLY ON 3LNC, ALL VSS. DAUGHTER MICHAEL WAS NOTIFIED OF INCIDENT. ORIF TODAY WAS CANCELLED AND IS TO BE RESCHEDULED. DR GALEANO NOTIFIED.
--- NOTE | 2020-08-11 09:31 | EKG ---
[address] [employer] [place] [address] ELECTROCARDIOGRAM REPORT Name: MADDENHUNTER ROLLE Room #: 462-P ADM IN M.R.#: [id number] Admission: 08/10/20 Attend Phys: Chen Avalos MD Discharge: Date of : 37 Report #: [id number] [facility] Test Date: 2020-08-10 Test Time: 14:20:58 Pat Name: HUNTER MADDEN Department: Room: [facility] Gender: F Senior Finance Manager: mason : 1935 Requested By: Chen Avalos Order Number: [id number] MD: Carter Ledezma Measurements Intervals [place] Rate: 73 P: 102 NE: 166 QRS: 63 QRSD: 135 T: 111 QT: 431 QTc: 475 Interpretive Statements Sinus rhythm Multiple premature complexes, vent & supraven Compared to ECG 08/10/2020 08:32:16 Electronically Signed On 08-11-2020 9:31:44 BLANKET WINDER HELPER by Carter Ledezma [email or web address] <ELECTRONICALLY SIGNED> By: Carter Ledezma MD 08/11/20 0931 1420 1420 Carter Ledezma MD /DEZ
[2020-08-11 10:26] LABS: HEMATOCRIT 40.7 % (37.0-47.0); MCH 29.5 pg (26.0-34.0); MCHC 31.9 g/dL (28.0-37.0); MCV 92.4 fL (80.0-100.0); PLATELET COUNT 151 thou/uL (150-400); RDW 14.4 % (10.5-14.5); WBC 20.3 thou/uL (4.0-11.0)
[2020-08-11 10:43] LABS: METAMYELOCYTES 1 %
[2020-08-11 10:45] LABS: ABSOLUTE NEUTROPHILS 18.3 thou/uL (1.4-8.2)
[2020-08-11 10:46] LABS: ALBUMIN 3.3 g/dL (3.4-5.0); ANISOCYTOSIS SLIGHT; CALCIUM 9.5 mg/dL (8.5-10.1); CREATININE 1.7 mg/dL (0.6-1.0); POTASSIUM 5.1 mmol/L (3.5-5.1); TOTAL PROTEIN 6.8 g/dL (6.4-8.2)
[2020-08-11 18:34] LABS: CALCIUM 8.9 mg/dL (8.5-10.1); CREATININE 1.8 mg/dL (0.6-1.0); MAGNESIUM 2.2 mg/dL (1.8-2.4); POTASSIUM 5.4 mmol/L (3.5-5.1)
--- NOTE | 2020-08-11 19:58 | NUR ---
PT AWAKE ALERT AND ORIENTED TIMES FOUR THIS MORNING. VSS. BIPAP STARTED THIS MORNING. IVF INFUSING PER ORDER. BO TO DD. PT C/O PAIN MEDICATIONS GIVEN WITH SOME RELEIF. SURGERY FOR TODAY POSTPONED UNTIL TOMORROW. PT WILL BE NPO AFTER MIDNIGHT. PT TOLERATES MED AND MEALS. PT DAUGHTER AT BESIDE FOR MOST OF THE SHIFT. WILL CONTINUE TO MONITOR.
[2020-08-11 20:00] VITALS: BP 118/62
[2020-08-12 06:03] LABS: ABSOLUTE NEUTROPHILS 13.9 thou/uL (1.4-8.2); BASOPHILS 0.2 % (0.0-2.0); HEMATOCRIT 34.2 % (37.0-47.0); HEMOGLOBIN 11.2 gm/dL (12.0-15.0); LYMPHOCYTES 4.4 % (24.0-44.0); MCH 29.9 pg (26.0-34.0); MCHC 32.6 g/dL (28.0-37.0); MCV 91.6 fL (80.0-100.0); MONOCYTES 6.2 % (1.0-8.0); PLATELET COUNT 123 thou/uL (150-400); POLYS 89.2 % (36.0-66.0); RBC 3.73 mil/uL (4.20-5.00); RDW 14.1 % (10.5-14.5); WBC 15.6 thou/uL (4.0-11.0)
[2020-08-12 06:20] LABS: ALBUMIN 2.7 g/dL (3.4-5.0); CALCIUM 8.5 mg/dL (8.5-10.1); CREATININE 1.8 mg/dL (0.6-1.0); MAGNESIUM 2.3 mg/dL (1.8-2.4); POTASSIUM 4.6 mmol/L (3.5-5.1); TOTAL BILIRUBIN 0.7 mg/dL (0.2-1.0); TOTAL PROTEIN 5.9 g/dL (6.4-8.2)
--- NOTE | 2020-08-12 07:19 | EKG ---
[address] [place] [address] ELECTROCARDIOGRAM REPORT Name: CHANOHUNTER Fredo Room #: [facility]- ADM IN M.R.#: [id number] Admission: 08/10/20 Attend Phys: Chen Avalos MD Discharge: Date of : 37 Report #: [id number] [facility] Test Date: 2020-08-11 Test Time: 16:50:16 Pat Name: HUNTER MADDEN Department: Room: 2 Gender: F Laminating Machine Operator: BP : 1935 Requested By: Carter Ledezma Order Number: [id number] MD: Andrea Wellington Measurements Intervals [place] Rate: 53 P: 88 TN: 146 QRS: 42 QRSD: 131 T: -58 QT: 457 QTc: 430 Interpretive Statements Sinus bradycardia Nonspecific intraventricular conduction delay Borderline repolarization abnormality Compared to ECG 08/10/2020 14:20:58 Premature supraventricular complexes are no longer present Electronically Signed On 08-12-2020 7:18:50 SHOE CUTTER by Andrea Wellington [email or web address] <ELECTRONICALLY SIGNED> By: Andrea Wellington MD, [facility] 08/12/20 07 49 49 Andrea Wellington MD, [facility] /EPI
[2020-08-12 08:46] VITALS: BP 101/40
--- NOTE | 2020-08-12 09:08 | 2DMMODE ---
[facility] [place] [address] 2 D/M-MODE ECHOCARDIOGRAM Name: HUNTER MADDEN Room #: 462-P ADM IN M.R.#: [id number] Admission: 08/10/20 Attend Phys: Chen Avalos MD Discharge: Date of : 37 Report #: [id number] THIS REPORT FOR: cc: Adalgisa Guzman MD, Nora P. MD Park, Jin S. MD ~ APPROVED REPORT Study performed: 08/12/2020 08:09:40 EXAM: Comprehensive 2D, Doppler, and color-flow Echocardiogram Patient Location: Bedside Room #: 462 Status: routine BSA: 1.94 HR: 60 bpm BP: 124/85 mmHg Other Information Study Quality: Adequate Technically limited study due to inability to position patient, broken leg. Indications CAD 2D Dimensions RVDd: 32.86 mm IVSd: 11.96 (7-11mm) LVOT Diam: 18.76 (18-24mm) LVDd: 54.69 mm PWd: 11.71 (7-11mm) Ascending Ao: 32.54 (22-36mm) LVDs: 46.10 (25-40mm) Aortic Root: 27.93 mm IVC: 28.00 mm Volumes Left Atrial Volume (Systole) Single Plane 4CH: 87.54 mL Single Plane 2CH: 83.23 mL LA ESV Index: 48.00 mL/m2 Aortic Valve AoV Peak David.: 1.37 m/s AO Peak Gr.: 7.46 mmHg LVOT Max P.68 mmHg LVOT Max V: 0.65 m/s EDUAR Vmax: 1.31 cm2 [facility] [address] [place] [address] 2 D/M-MODE ECHOCARDIOGRAM Name: HUNTER MADDEN Room #: 462-P [facility]#: [id number] Admission: 08/10/20 Attend Phys: Chen Avalos, Discharge: Date of : 37 Report #: [id number] Mitral Valve E/A Ratio: 1.9 MV Decel. Time: 241.34 ms MV E Max David.: 1.20 m/s MV A David.: 0.63 m/s MV PHT: 69.99 ms IVRT: 96.89 ms Pulmonary Valve PV Peak David.: 0.90 m/s PV Peak Gr.: 3.22 mmHg Pulmonary Vein P Vein S: 0.42 m/s P Vein A: 0.23 m/s P Vein D: 0.30 m/s P Vein A Dur.: 117.6 msec P Vein S/D Ratio: 1.40 Tricuspid Valve TR Peak David.: 3.61 m/s RAP Estimate: 10.00 mmHg TR Peak Gr.: 52.21 mmHg PA Pressure: 62.00 mmHg Left Ventricle Left ventricle is at the upper limits of normal. Inferior and inferolateral avalos are hypokinetic. Mild concentric left ventricular hypertrophy. Left ventricular systolic function is moderately decreased. LVEF is 35-40%. Right Ventricle The right ventricle is normal size. The right ventricular systolic function is normal. Atria Left atrium is severely dilated. Right atrium is mildly dilated. Aortic Valve Aortic valve is mildly calcified. No aortic regurgitation is present. There is no aortic valvular stenosis. Mitral Valve The mitral valve is mildly thickened. Mild mitral annular calcification. Moderate eccentric mitral regurgitation. No evidence of mitral valve stenosis. Tricuspid Valve [facility] [address] [address] 2 D/M-MODE ECHOCARDIOGRAM Name: HUNTER MADDEN Fredo Room #: 462-P [facility] IN .R.#: [id number] Admission: 08/10/20 Attend Phys: Chen Avalos, Discharge: Date of : 37 Report #: [id number] The tricuspid valve is normal in structure. Mild tricuspid regurgitation. PAP is estimated at 56 mmHg. Pulmonic Valve The pulmonary valve is normal in structure. Trace pulmonic regurgitation. Great Vessels The aortic root is normal in size. IVC is dilated and collapses >50% with inspiration. Pericardium There is no pericardial effusion. <Conclusion> Left ventricle is at the upper limits of normal. Left ventricular systolic function is moderately decreased. Inferior and inferolateral avalos are hypokinetic. The right ventricle is normal size. Left atrium is severely dilated. Aortic valve is mildly calcified. Moderate eccentric mitral regurgitation. Mild tricuspid regurgitation. PAP is estimated at 56 mmHg. <ELECTRONICALLY SIGNED> By: Carl Salcedo MD 08/12/20906 6 6 Carl Salcedo MD /INF
[2020-08-12 15:56] VITALS: BP 148/68
[2020-08-12 16:19] LABS: HEMATOCRIT 37.7 % (37.0-47.0); HEMOGLOBIN 12.1 gm/dL (12.0-15.0); MCH 29.5 pg (26.0-34.0); MCHC 32.1 g/dL (28.0-37.0); MCV 91.9 fL (80.0-100.0); RBC 4.11 mil/uL (4.20-5.00); RDW 14.2 % (10.5-14.5); WBC 18.9 thou/uL (4.0-11.0)
[2020-08-12 16:30] VITALS: BP 135/67
[2020-08-12 19:48] VITALS: BP 135/66
--- NOTE | 2020-08-12 19:53 | NUR ---
ASSUMED CARE OF THE PATIENT AT 0715, PATIENT ALERT AND ORIENTED X3. PATIENT NPO FOR SURGERY THIS AFTERNOON. PATIENT C/O PAIN WITH ACTIVITY, PATIENT C/O SPASMS, FENTANYL 25 MCG IV GIVEN PRIOR TO SURGERY. ECHO DONE PRIOR TO SURGERY. SURGERY DONE THIS AFTERNOON, DR HENRY. DRESSING TO RIGHT HIP AREA C/D/I, PATIENT ON BEDREST, PT/OT EVAL ORDERED. BO CATHETER IN PLACE DUE TO IMMOBILIZATION. PATIENT ARRIVED BACK ON THE UNIT AT 1600, FENTANYL 25 MCG IV GIVEN, PATIENT C/O NO RELIEF, THIS RN NOTIFIED DR MCNAMARA, NEW ORDER FOR MORPHINE 2MG IV RECEIVED AND GIVEN. PATIEN DENIES NAUSEA, WANTS TO STAY ON CLEAR LIQUID DIET AT THIS TIME, ICE CHIPS GIVEN. O2 AT 4 LITERS/NC IN PLACE, THIS RN ALSO NOTIFIED DR MCNAMARA PRIOR TO SURGERY OF PATIENT LUNGS COARSE/WHEEZES, NEW ORDER FOR LASIX 40 MG IV GIVEN X 1. ALSO HAD RT/OSCAR GIVE PRN BREATHING TREATMENT PRIOR TO SURGERY. WILL CONTINUE TO MONITOR.
[2020-08-13 06:17] LABS: HEMATOCRIT 32.8 % (37.0-47.0); HEMOGLOBIN 10.8 gm/dL (12.0-15.0); MCH 29.9 pg (26.0-34.0); MCHC 32.9 g/dL (28.0-37.0); MCV 90.9 fL (80.0-100.0); RBC 3.6 mil/uL (4.20-5.00); WBC 12.3 thou/uL (4.0-11.0)
[2020-08-13 06:34] LABS: CALCIUM 8.2 mg/dL (8.5-10.1); CREATININE 1.5 mg/dL (0.6-1.0); POTASSIUM 4.4 mmol/L (3.5-5.1)
--- NOTE | 2020-08-13 08:31 | HC ---
[facility] [place] [address] CONSULTATION Name: HUNTER MADDEN Room #: 462-P ADM IN M.R.#: [id number] Admission: 08/10/20 Attend Phys: Chen Avalos MD Discharge: Date of : 37 Report #: [id number] THIS REPORT FOR: cc: Adalgisa Guzman MD, Nora P. MD [facility] ~ DATE OF SERVICE: 08/10/2020 REASON FOR CONSULTATION/CHIEF COMPLAINT: Right hip fracture. HISTORY OF PRESENT ILLNESS: The patient is an 85-year-old female who fell getting off the toilet this morning at 7:00 a.m. She reports significant pain, was unable to ambulate. EMS brought her and she was evaluated and diagnosed with a right hip fracture and admitted. PAST MEDICAL HISTORY: Significant for diabetes and hypertension. Significant peripheral vascular disease, bronchitis, congestive heart failure, chronic kidney disease, pulmonary hypertension, mitral regurgitation. ALLERGIES: No known drug allergies. REVIEW OF SYSTEMS: MUSCULOSKELETAL: Denies any other extremity pain except for right hip. PAST SURGICAL HISTORY: Bilateral lower extremity stents, left hip TFN. MEDICATIONS: Simvastatin, clopidogrel, insulin. OTHER SURGICAL HISTORY: Left ankle fracture, left great toe amputation, right small toe amputation. SOCIAL HISTORY: Denies smoking or drinking alcohol. Lives by herself and ambulates with a walker. LABORATORY DATA: Done on the date of admission show white blood cell count 7.4, hemoglobin 14.1, hematocrit 43.2, platelet count 163. Chemistry is grossly normal. Albumin is low at 3.3. INR is 1. COVID test is pending. PHYSICAL EXAMINATION: GENERAL: The patient is awake and alert, oriented. She initially interacts appropriately; however, appeared to have multiple episodes of muscle spasms. She has like you said had intermittent episodes of what appeared to be muscle spasms. She is well-developed, well-nourished female. VITAL SIGNS: Most recent vital signs show temperature of 36.7, heart rate is 57, respiratory rate is 9, blood pressure 133/59, pulse oximetry 98% on room [address] [address] CONSULTATION Name: HUNTER MADDEN Room #: 462-P [facility] IN .R.#: [id number] Admission: 08/10/20 Attend Phys: Chen Avalos MD Discharge: Date of : 37 Report #: [id number] air. EXTREMITIES: Examination of her bilateral upper extremities, skin is clean, dry and intact. Brisk capillary refill. Gross motor, sensory and stability is intact. Gross motor intact. She has no pain with range of motion of her bilateral upper extremities. No tenderness to palpation. Right lower extremity is shortened. There is no obvious sign of muscle spasm. She has no tenderness to palpation throughout the knee, leg, ankle or foot, noted absence of the right small toe. I am unable to palpate a pulse. She has brisk capillary refill. Gross motor instability is intact. She wiggles her toes. Left lower extremity examination, sensation is grossly intact to light touch throughout. Grossly normal strength and stability. She wiggles her toes. No tenderness to palpation throughout the entire left lower extremity except for some significant skin sensitivity distally per the patient secondary to her peripheral vascular disease. RADIOGRAPHS: AP pelvis and AP and lateral of the right hip show a displaced intertrochanteric femur fracture and a previously placed cephalomedullary device in her left hip. IMPRESSION AND PLAN: Right intertrochanteric femur fracture with significant displacement. I discussed the diagnosis as well as treatment options. Recommend surgical fixation in order to allow her to be mobile. I had to wait for her to calm down in order to have the discussion regarding surgical risk. Informed consent was obtained. The risks, benefits, alternatives and complications were discussed including but not limited to infection, damage to vessels or nerves, nonunion, malunion, hardware failure, hardware rotation, stiffness, blood clots, and decreased ambulatory level. Questions were answered to the best of my ability and also discussed. We will speak again tomorrow morning before surgery. <ELECTRONICALLY SIGNED> By: Lizzy Ramsay MD 08/13/20 0831 1053 [id number] Lizzy Ramsay MD /nt
--- NOTE | 2020-08-13 08:31 | O ---
[facility] [place] [address] OPERATIVE REPORT Name: HUNTER MADDEN Room #: 462-P [facility] IN M.R.#: [id number] Admission: 08/10/20 Attend Phys: Chen Avalos MD Discharge: Date of : 37 Report #: [id number] THIS REPORT FOR: cc: Adalgisa Guzman MD, Nora P. MD Deardorff, Valerie A. MD ~ DATE OF SERVICE: 08/12/2020 PREOPERATIVE DIAGNOSIS: Right intertrochanteric hip fracture. POSTOPERATIVE DIAGNOSIS: Right intertrochanteric hip fracture. PROCEDURE PERFORMED: Intramedullary nail fixation, right intertrochanteric hip fracture. SURGEON: Lizzy Ramsay MD ANESTHESIA: General mask anesthesia. ESTIMATED BLOOD LOSS: 50 mL. COMPLICATIONS: None. CONDITION: Stable. DISPOSITION: Recovery room. IMPLANTS USED: Synthes trochanteric fixation nail size 11 mm. INDICATIONS: The patient is an 85-year-old female with the above-mentioned diagnosis. She elects for operative treatment. The risks, benefits, alternatives and complications were discussed including but not limited to infection, damage to vessels or nerves, nonunion, malunion, hardware failure, hardware irritation, stiffness, blood clots or decrease in ambulatory level. Informed consent was obtained. The correct extremity was identified and labeled by myself after verbal confirmation of the patient as well as visual confirmation and signed informed consent. DESCRIPTION OF PROCEDURE: The patient was brought back to the operating room and underwent general anesthesia on the cart. She was then placed on a fracture table with careful attention to padding bony prominences and neurovascular structures. Her legs were placed in the boots over padding and the right leg was placed into traction. Fluoroscopy was brought in. AP and lateral views showed good position of the fracture and ability to achieve good views. The patient was then sterilely prepped and draped in the usual fashion. Final [facility] [address] [place] [address] OPERATIVE REPORT Name: CHANOHUNTER Room #: 462-P [facility] IN [facility].#: [id number] Admission: 08/10/20 Attend Phys: Chen Avalos MD Discharge: Date of : 37 Report #: [id number] timeout was taken to verify correct patient, operative procedure, operative site, all concurred. Next, the greater trochanter was identified using a Beckwith elevator and fluoroscopy. Approximately, a 5 cm incision was made proximal just posterior to this. The fascia was incised and a guidewire was placed down the femur. This had to be repositioned a few times and once it was found to be in good position via fluoroscopy, a soft tissue protector was placed in the proximal femur, it was drilled and 11 mm nail was then chosen and placed down the femoral canal. Next, the skin and fascia was incised for the helical blade and the position of the trajectory of the helical blade was assessed and once it was found to be appropriate, the guidewire for the helical blade was placed. This was checked in AP and lateral planes and found to be in the appropriate position. The cortex was drilled. The wire was placed just posterior on the lateral and center on the AP view, it measured about 96-97 mm, a 90 mm helical blade was chosen. The cortex was drilled, the helical blade was placed without difficulty. AP and lateral plane showed good position of the blade and the fracture. Next, the distal locking screws were drilled, measured and appropriate size screw was placed. AP and lateral views all showed good position of the fracture and the hardware. The guide for the nail was then removed after the helical blade was locked into place. Helical blade was locked into place prior to placing the distal screw. The wounds were all thoroughly irrigated. The fascia and deep fat was closed with 0 Vicryl suture. The subcutaneous tissue was closed with 2-0 Vicryl and the skin lavonne. The wound was dressed with Adaptic and sterile gauze. She was placed in a bulky dressing. All toes were pink with brisk capillary refill at the conclusion of case. All sponge and needle counts were correct. The patient was transferred to postoperative recovery room in stable condition. <ELECTRONICALLY SIGNED> By: Lizzy Ramsay MD 08/13/20 0831 [id number] 1545 Lizzy Ramsay MD /nt
[2020-08-13 09:32] VITALS: BP 114/54
--- NOTE | 2020-08-13 13:33 | NUR ---
PT ADMITTED RELATED TO RIGHT HIP FX. PT IS POD#1. CM CALLED AND SPOKE WITH PT OVER THE PHONE THIS DAY. PT INDICATED SHE LIVES ALONE IN A HOUSE WITH A RAMP TO ENTER AND STAIRGLIDES INSIDE. PT INDICATED SHE HAS A FWW AND 4WW FOR USE AT HOME. PT INDICATED [facility] HAD [facility] IN THE PAST AND HAD BE[facility] TO [facility] THE [facility]ST. PT INDICATED SHE HAD HOPED SHE WOULD BE ABLE TO GO TO [facility] SO HER DTR COULD VISIT HER. CM INDICATED THAT PT'S WB STATUS MIGHT BE AN ISSUE PT IS 20% WB ON RLE. SHE INDICATED THAT SHE WOULD CONSIDER [facility] IF CAN'T GO TO [facility]. THERAPY AND [facility] TEAM INDICATING THAT PT IS APPROPRIATE FOR SNF. CM NOTIFIED PT AND SHE WAS DISAPOINTED... SAID REFERRAL COULD BE SENT TO [facility] FOR REVIEW. CM TO FOLLOW INDICATED WITH DC PLANNING.
--- NOTE | 2020-08-13 14:05 | NUR ---
1 GUT CARRIER, 1 DINAMAP MACHINE, 16 PATIENTS
--- NOTE | 2020-08-13 14:23 | NUR ---
PT A&OX4, VSS, C/O GENERALIZED, PAIN MEDICATON GIVE. PATIENT HAS BO. PATIENT UP TO RECLINER WITH PT. NO SIGNS OF DISTRESS. WILL CONTINUE TO MONITOR.
--- NOTE | 2020-08-13 16:18 | NUR ---
FAXED REFERRAL TO [facility] SPOKE WITH FRANKY IN ADM SHE RECEIVED REFERRAL AND WILL REVIEW.
[2020-08-13 16:20] VITALS: BP 140/68
[2020-08-13 19:10] VITALS: BP 125/61
[2020-08-13 20:00] VITALS: BP 117/113
[2020-08-14 04:44] VITALS: BP 126/55
[2020-08-14 06:27] LABS: HEMOGLOBIN 10.9 gm/dL (12.0-15.0); MCHC 33.1 g/dL (28.0-37.0); MCV 90.5 fL (80.0-100.0); RBC 3.65 mil/uL (4.20-5.00); RDW 14.2 % (10.5-14.5); WBC 12.6 thou/uL (4.0-11.0)
--- NOTE | 2020-08-14 08:03 | NUR ---
PROGRESS PT A/O X4 UP WITH PT/OT RIGHT HIP IMCISION IMTACT WITH DRESSING C/D/I REPORTS A LOT OF PAIN TO BACK CHEST AND ARMS FROM COMPRESSIONS TAKING SCHEDULED TRAMADOL AND OXYCODONE WITH SOME EFFECT PT SLEPT MOST OF NIGHT. BO INTACT DRAINING ADEQUATE AMOUNTS OF URINE. PEDAL PULSES STRONG AND PT ABLE TO PEDAL AND DORSIFLEX WITHOUT DIFFICULTY. CONTINUE POC.
[2020-08-14 08:37] VITALS: BP 135/75
--- NOTE | 2020-08-14 14:14 | HC ---
[facility] [place] [address] CONSULTATION Name: HUNTER MADDEN Room #: 462-P ADM IN M.R.#: [id number] Admission: 08/10/20 Attend Phys: Chen Avalos MD Discharge: Date of : 37 Report #: [id number] THIS REPORT FOR: cc: Adalgisa Guzman MD, Nora P. MD Couchonnal, Luis F. MD ~ DATE OF SERVICE: 08/10/2020 CARDIOLOGY CONSULTATION REASON FOR CONSULTATION: Preop clearance. HISTORY OF PRESENT ILLNESS: The patient is an 85-year-old female with a history of coronary artery disease and ischemic cardiomyopathy. She follows with Dr. Lewis for her cardiac history and Dr. Olsen for her peripheral vascular disease. Her last cardiac evaluation was in 01/[address] where she saw both Dr. Olsen and Dr. Lewis. She had an echo back in 01/2020 showing an EF of 45-50% with severe mitral regurgitation and PA pressures of 59 mmHg. This is being managed conservatively. She also had a nuclear stress test back in 10/2019, which showed an area of ischemia, which is consistent with her known coronary artery disease and is also being treated medically as she has had no symptoms of angina. The patient was admitted to the hospital after falling from her toilet and breaking her hip. She denies any chest pain or chest tightness. She reports that her breathing has been stable. She denies any worsening shortness of breath and she has a good exercise tolerance without significant limitations. She denies PND or orthopnea. She denies any presyncope or syncope. REVIEW OF SYSTEMS: A 12-point review of systems was performed and was negative other than mentioned above. PAST MEDICAL HISTORY: Includes: 1. Coronary artery disease. 2. Ischemic cardiomyopathy, EF of 45-50% with severe MR, PA pressures of 59 based on echo 01/2020. 3. Peripheral vascular disease. 4. Prior osteomyelitis. 5. Hypertension. 6. Neuropathy. 7. Chronic renal insufficiency. 8. Two-vessel CAD. 9. Diabetes mellitus. FAMILY HISTORY: Noncontributory. [facility] [address] [place] [address] CONSULTATION Name: HUNTER MADDEN Room #: 462-P [facility] IN .R.#: [id number] Admission: 08/10/20 Attend Phys: Chen Avalos MD Discharge: Date of : 37 Report #: [id number] SOCIAL HISTORY: She does not smoke. ALLERGIES: Have been reviewed. CURRENT MEDICATIONS: Have been reviewed. She is on Lipitor, insulin, torsemide, spironolactone, metoprolol, and pain medications. PHYSICAL EXAMINATION: VITAL SIGNS: Temperature is 36.4, pulse 86, respiration 15, blood pressure 143/85, sats are 99%. GENERAL: She is in no acute distress, but somewhat angry and difficult to focus on her cardiac workup. HEENT: Oropharynx is clear. NECK: Supple. HEART: Regular rate and rhythm with no murmurs. She does have a systolic ejection murmur at the left lower sternal border. She has no JVD. LUNGS: Clear bilaterally. ABDOMEN: Soft, nontender, nondistended with no hepatosplenomegaly. EXTREMITIES: There is no clubbing, cyanosis or edema. NEUROLOGIC: Cranial nerves 2-12 are intact. PSYCHIATRIC: She is somewhat agitated, but alert and responsive. DIAGNOSTIC AND LABORATORY DATA: Her 12-lead EKG today shows normal sinus rhythm with occasional PVC and PACs, but no ischemic changes. CBC is within normal limits. Coags: INR is 1. Creatinine is 1.3. She is COVID negative. Her chest x-ray shows no evidence of pulmonary edema. ASSESSMENT: 1. Coronary artery disease. 2. Ischemic cardiomyopathy. 3. Severe mitral regurgitation. 4. Pulmonary hypertension. 5. Peripheral vascular disease. 6. Chronic renal insufficiency. 7. Diabetes. PLAN: In summary, the patient is an 85-year-old with a complex past cardiac history. At this time, her cardiovascular symptoms appear to be stable. She is not having any symptoms of unstable angina or acute congestive heart failure. I recommend continuing with her current medical regimen. I do not believe further [address] [address] CONSULTATION Name: HUNTER MADDEN Room #: 462-P [facility] IN M.R.#: [id number] Admission: 08/10/20 Attend Phys: Chen Avalos MD Discharge: Date of : 37 Report #: [id number] cardiac testing is warranted and she can proceed with her upcoming hip surgery. We will continue to follow. <ELECTRONICALLY SIGNED> By: Carter Ledezma MD 08/14/20 1414 1421 1530 Carter Ledezma MD /nt
--- NOTE | 2020-08-14 16:35 | NUR ---
[facility] CAN ACCEPT PT. CARE TEAM INDIATED PROBABLE DC TOMORROW. CM MET WITH PT AND DTR AT BEDSIDE AND NOTIFIED THEM. THEY ARE AWARE AND AGREEABLE. CM TO FOLLOW INDICATED WITH DISCHARGE TO [facility] ONCE MEDICALLY STABLE.
--- NOTE | 2020-08-14 19:23 | NUR ---
PATIENT IS ALERT, AND ROIENTED X 3-4, ABLE TO VOICE NEED. MEDICATION ADMINISTERED WHOLE WITHOUT DIFFICULTY. LUNGS WITH DIMINISHED SOUND PER AUSCULTATION, BS+X4, ABD SOFT NON-TENDER TO TOUCH, ABLE TO FEED SELF. PATIENT IS EATING MEALS, AND DRINKING FLUID FAIRLY WELL. PATIENT HAS HX OF GENERALIZED CHRONIC PAIN, GETTING MEDICATION FOR PAIN. NEW IV LINE STARTED TO RIGHT ARM BY IV TEAM, SAME REMAIN INTACT, NO SIGN OF INFILTRATION NOTED. BO CATH PATENT OF YELLOW URINE. DRESSING IN PLACE TO RIGHT HIP SURGICAL WOUND NO DRAINAGE NOTED. NO S&S OF HYPER/HYPOGLYCEMIA NOTED, INSULIN GIVEN PER ORDER. NO SIGN OF ACUTE DISTRESS NOTED, CALL LIGHT IN REACH, WILL CONTINUE TO MONITOR.
[2020-08-14 19:56] VITALS: BP 125/101
[2020-08-14 20:57] VITALS: BP 140/78
--- NOTE | 2020-08-15 05:05 | NUR ---
PT IS A/O X4 AND IS UP WITH ASSITANCE X1. DRSG TO RIGHT KNEE IS C/D/I. ICE PACKS PLACED. C/O PAIN TO BACK AND CHEST. PAIN MEDICATION GIVEN DIRECTED. CREAM APPLIED TO BACK FOR PAIN. SR WITH PAC/PVC'S ON THE MONITOR. FALL PRECAUTIONS ARE IN PLACE, CALL LIGHT IS WITHIN REACH.
[2020-08-15 07:19] VITALS: BP 132/60
[2020-08-15] MEDS ORDERED: IPRAT-ALBUT 0.5-3 ML INH (09:39)
[2020-08-15] MEDS ORDERED: LIDOPATCH1 EACH TRANSDERM (09:39)
[2020-08-15] MEDS ORDERED: TRAMADOL 50 MG50 MG PO (09:39)
[2020-08-15] MEDS ORDERED: HUMALOG100 UNIT/1 SUBQ (09:39)
[2020-08-15] MEDS ORDERED: OXYCODONE HCL 55 MG PO (09:39)
[2020-08-15] MEDS ORDERED: VOLTAREN GEL 1100 G1 TOP (09:39)
[2020-08-15] MEDS ORDERED: ROBAXIN 750 MG750 MG PO (09:39)
[2020-08-15 10:27] LABS: CALCIUM 8.9 mg/dL (8.5-10.1); CREATININE 1.3 mg/dL (0.6-1.0); POTASSIUM 4.8 mmol/L (3.5-5.1)
--- NOTE | 2020-08-15 12:44 | NUR ---
ASSUMED PT CARE THIS AM. PT COMPLAINS OF NO PAIN WHEN RESTING, GIVEN PAIN MEDS BEFORE WORKING WITH PHYSICAL THERAPY. PT ON TELE. PT HAS A NONPRODUCTIVE COUGH, COARSE BREATH SOUNDS. MADE AWARE AND NEW ORDERS PUT IN PLACE. PT ENCOURAGED TO COUGH AND DEEP BREATH. BO IN PLACE, PATENT, IV PATENT, MEDS INFUSING WELL. FALL PRECAUTIONS IN PLACE. CALLS APPROPRIATELY WHEN NEEDED.
--- NOTE | 2020-08-15 16:07 | NUR ---
DC HAD BEEN PLAND TODAY TO [facility] BUT PHYSICIAN INDIATED THAT SHE WANTED REPEAT CHEST XRAY DUE TO CONGESTION. CM NOTIFIED FACILITY. CM TO FOLLOW INDICATED WITH DC PLANNING.
[2020-08-15 16:08] VITALS: BP 121/62
[2020-08-15 20:25] VITALS: BP 127/65
--- NOTE | 2020-08-16 04:00 | NUR ---
ASSUMED CARE OF PT AT 1900. PT IS A/O X4 AND IS UP WITH MAX ASSIST. PT IS ON 1.5 LITERS OF NC AND IS SR/SA WITH BBB ON THE MONITOR. DRSG TO RIGHT HIP C/D/I. C/O PAIN. SCHEDULED PAIN MEDICATION AND CREAM GIVEN DIRECTED. HS BS 232. REMAINS CONGESTED AND C/O CHEST DISCOMFORT WHILE TRYING TO EXPEL SPUDEM. BO IN PLACE AND DRAINING LIGHT YELLOW URINE. FALL PRECAUTIONS IMPLEMENTED, CALL LIGHT IS WITHIN REACH. WILL CONTINUE TO MONITOR.
[2020-08-16 07:08] VITALS: BP 129/70
[2020-08-16 09:00] VITALS: BP 129/70
[2020-08-16 14:41] LABS: CALCIUM 9.4 mg/dL (8.5-10.1); CREATININE 1.5 mg/dL (0.6-1.0); POTASSIUM 4.7 mmol/L (3.5-5.1)
--- NOTE | 2020-08-16 15:16 | NUR ---
Received awake on bed. Due medications given as prescribed, able to swallow meds w/o difficulty. On room air. Vital signs stable. On telemetry; no complains and signs of chest pain, crushing sensation and heaviness. On O2 at 1.5lpm via nasal cannula, pt says she was not using oxygen at home; with non productive cough noted- Dr Gonzalez informed; meds to be prescribed. On carb controlled diet- tolerating well; no nausea, no vomiting and no abdominal pain noted. On blood sugar monitoring, taken and recorded accordingly. With colindres in place- output measured and recorded accordingly. With R hip dressing in place- C/D/I. With R FA SL, on IV antibiotics- dislodged today; for reinsertion- IV nurse informed; followed up with IV nurse this afternoon. Pt seen and examined by Dr Gonzalez this AM. Pt seen by PT/OT today as well; tolerated session well; able to sit out on the chair. Pt's daughter visited, update given. To continue monitoring patient.
[2020-08-16 15:31] VITALS: BP 130/77
--- NOTE | 2020-08-16 16:44 | NUR ---
FAXED CLINICAL UPDATE TO [facility] RECEIVED CONFIRMATION AND LEFT MSG WITH FRANKY IN ADM.
[2020-08-16 19:36] VITALS: BP 130/69
--- NOTE | 2020-08-17 02:36 | NUR ---
ASSUMED CARE OF PT AT 1900. PT IS A/O X4. DRSG TO RIGHT HIP IS C/D/I. STARTED COUGH MEDICATION DIRECTED. PT STATED SHE FELT IT HELPED COUGH TREMENDOUSLY. ROOM AIR. SA/BBB ON THE MONITOR. FALL PRECAUTIONS IN PLACE,CALL LIGHT IS WITHIN REACH.
[2020-08-17 06:02] VITALS: BP 136/66
[2020-08-17 07:21] VITALS: BP 146/76
[2020-08-17 09:00] VITALS: BP 146/76
[2020-08-17 15:00] VITALS: BP 146/79
--- NOTE | 2020-08-17 19:47 | NUR ---
Received awake on bed. Due medications given as prescribed, able to swallow meds w/o difficulty. On O2 at 1 lpm via nasal cannula. On telemetry; no complains and signs of chest pain, crushing sensation and heaviness. On carb controlled diet- tolerating well; no nausea, no vomiting and no abdominal pain noted. Assisted in ADLs. On blood sugar monitoring, taken and recorded accordingly; with sliding scale insulin ordered- given as prescribed. With colindres in place- draining well; output measured and recorded accordingly. With R hip dressing in place- changed today; no bleeding noted; pt tolerated dressing change. With R FA SL- intact and flushing well. Pt seen and examined by Dr Gonzalez this AM, informed her that pt's last bowel movement was 1/2, pt already on 2 scheduled stool softener/laxative. Pt seen and examined by PT today, able to sit out on the chair; back to bed safely. Pt's daughter visited today, update given. Night RN informed pt scheduled for Chest CT scan on Wednesday. To continue monitoring patient.
--- NOTE | 2020-08-18 04:08 | NUR ---
PT CARE ASSUMED WITH PT IN BED WATCHING TV.PT IS A/O X4.PT UP WITH PT/OT.PT HAS SCEDULED OXYCODONE AND TRAMADOL FOR PAIN MANAGEMENT WITH RELIEF.DRESSING ON RT HIP D/C/I.PT IS ACCUCHECK ACHS WITH SSI.PT IS ON 1L OF O2 VIA NC AND PT CONGESTED AND LUNG SOUNDS WITH CRACKLES.PT HAS A SOLEY CATHETER IN PLACE.FALL PRECAUTION IN PLACE.WILL CONTINUE TO MONITOR
[2020-08-18 08:34] VITALS: BP 154/79
[2020-08-18 10:49] LABS: HEMATOCRIT 36.4 % (37.0-47.0); HEMOGLOBIN 11.7 gm/dL (12.0-15.0); MCH 29.6 pg (26.0-34.0); MCHC 32.1 g/dL (28.0-37.0); MCV 92.3 fL (80.0-100.0); RBC 3.94 mil/uL (4.20-5.00); RDW 14.4 % (10.5-14.5); WBC 14.3 thou/uL (4.0-11.0)
[2020-08-18 11:03] LABS: CALCIUM 8.9 mg/dL (8.5-10.1); CREATININE 1.2 mg/dL (0.6-1.0); POTASSIUM 4.6 mmol/L (3.5-5.1)
[2020-08-18 17:40] VITALS: BP 152/68
--- NOTE | 2020-08-18 20:13 | NUR ---
PT A&OX4, VSS, PAIN IN HIP. PATIENT ON ROOM AIR, 96% SATS. PATIENT C/O FOOD GETTING CAUGHT IN THROAT, SPEECH EVAL ORDERED. PATIENT [facility] TROUGH 21, DOCTOR CALLED AND AWARE. [facility] HELD THIS SHIFT. NO SIGNS OF DISTRESS. WILL CONTINUE TO MONITOR.
[2020-08-18 20:18] VITALS: BP 139/69
--- NOTE | 2020-08-19 03:26 | NUR ---
PT CARE ASSUMED WITH PT IN BED WATCHING TV .PT IS A/O X4.PT UP WITH PT/OT TO CHAIR .PT HAS SCHEDULED OXYCODONE AND TRAMADOL FOR PAIN MANAGEMENT.PT HAS A BO ON PLACE .PT CONGESTED AND ON BREATHING TREATMENT.PT IS ACCUCHECK ACHS .WILL CONTINUE TO MONITOR
[2020-08-19 07:18] VITALS: BP 142/68
[2020-08-19 15:31] VITALS: BP 137/54
--- NOTE | 2020-08-19 16:06 | NUR ---
CARE TEAM INDICATED THAT PT ISN'T YET MEDICALLY STABLE TO DC TO [facility]. CM SPOKE WITH FACILITY THIS AM AND THEY HAD BEDS OPEN TODAY. CM TO CONTINUE TO UPDATE THEM ON PT'S PROGRESS. PULM CONSULTED.
--- NOTE | 2020-08-19 19:39 | NUR ---
beculn test given t left volar rearm area circled
--- NOTE | 2020-08-19 19:56 | NUR ---
Assumed pt care this am, vs stable. Some medication refused. Pain is noted with movement. Was able to work with PT and stayed on the recliner for most of the day. Diet and medications are tolerated well. Surgical wound on the right hip c/d/i. POC followed with no signs or verbalizations of distress noted.
[2020-08-19 20:02] VITALS: BP 140/71
--- NOTE | 2020-08-19 20:23 | HC ---
[facility] [place] [address] CONSULTATION Name: HUNTER MADDEN Room #: 462-P ADM IN M.R.#: [id number] Admission: 08/10/20 Attend Phys: Chen Avalos MD Discharge: Date of : 37 Report #: [id number] THIS REPORT FOR: cc: Adalgisa Guzman MD, Nora P. MD Geha, Daniel J. MD ~ DATE OF SERVICE: 08/19/2020 INFECTIOUS DISEASE CONSULTATION REASON FOR CONSULTATION: I was asked to evaluate concerning cavitary lung lesion. HISTORY OF PRESENT ILLNESS: The patient is an 85-year-old admitted on 08/10/2020 after she fell from the toilet, landing on her right hip. Had excruciating pain and presented to the Emergency Room. No syncopal episode. No head injury noted. She was found to have a right femoral neck fracture. Following her initial admission, she had a cardiopulmonary arrest and was resuscitated. She stabilized from this and was taken to surgery on 08/12/2020 for repair of her intertrochanteric fracture. She does have a known ischemic cardiomyopathy with an EF of 35-40%, in addition mitral valvular heart disease, peripheral vascular disease, hypertension, pulmonary hypertension, diabetes and chronic kidney disease. It was felt that she most likely aspirated and was treated initially with ceftriaxone. Today, she was switched to vancomycin and Zosyn for further antibiotic coverage. She was initially on high flow oxygen and over the week, was tapered down and now has been off oxygen for the last 3 days. She has had no fever, chills or sweats. She is beginning to mobilize. No pleuritic chest pain. She does have some mid back pain. She has had no further cardiovascular events or syncopal episodes. REVIEW OF SYSTEMS: A 14-point was negative other than what has been described above. ALLERGIES: None known. MEDICATIONS: As noted on her MAR including vancomycin and Zosyn. PAST MEDICAL HISTORY: Hypertension, ischemic cardiomyopathy, mitral valvular heart disease, peripheral vascular disease, diabetes, hyperlipidemia, chronic kidney disease, bilateral peripheral neuropathy, pulmonary hypertension. 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 FAMILY HISTORY: Negative for tuberculosis. [facility] [address] [place] [address] CONSULTATION Name: HUNTER MADDEN Room #: 462-P [facility] IN ..#: [id number] Admission: 08/10/20 Attend Phys: Chen Avalos MD Discharge: Date of : 39 Report #: [id number] SOCIAL HISTORY: Nonsmoker, no significant alcohol intake. No travel outside the [place]. No HIV risk factors. No extended farmland exposure or animal exposure. PHYSICAL EXAMINATION: VITAL SIGNS: Afebrile and hemodynamically stable. GENERAL: She was alert and cooperative and pleasant, in no acute distress. SKIN: Without rash or decubitus. Right hip incision was well approximated. Dressings were dry. 1+ edema in the thigh. No palpable adenopathy. EYES: Without scleral icterus. MOUTH: Without mucositis. NECK: Supple. LUNGS: Few crackles in the right mid posterior chest and below. No definite consolidation identified. HEART: Regular with a 2/6 systolic murmur heard at the apex. No gallop or rub. ABDOMEN: Soft and nontender with no hepatosplenomegaly or mass appreciated. No back spinal tenderness or CVA tenderness. GENITOURINARY: Not performed. RECTAL: Not performed. EXTREMITIES: Without further cyanosis or edema noted. Cranial nerves intact. Strength in upper and lower extremities, symmetric and within normal limits. Right leg movement is compromised by pain in her right hip. Mood without anxiety or depression. LABORATORY STUDIES: Reviewed. MICROBIOLOGY: Reviewed. CT scan of the chest was reviewed and compared to her previous film 2017 and most recent chest x-rays. IMPRESSION: 1. An 85-year-old with new findings of a cavitary left lower lobe lung lesion along with patchy infiltrates in the right upper, middle, and lower lobe after cardiopulmonary arrest 1 week ago. I am suspecting aspiration pneumonia. There is what appears to be cavitation in the left lobe. This was not evident. Her CAT scan of 06/2017 where she was noted to have rib fractures on the right. 2. Right femoral neck fracture, status post repair, 08/12/2020. 3. Cardiomyopathy with severe mitral regurgitation. 4. Pulmonary hypertension. 5. Systemic hypertension. 6. Diabetes. 7. Peripheral vascular disease. [address] [address] CONSULTATION Name: HUNTER MADDEN Room #: 462-P ADM IN M.R.#: [id number] Admission: 08/10/20 Attend Phys: Chen Avalos MD Discharge: Date of : 39 Report #: [id number] 8. Chronic kidney disease. RECOMMENDATIONS: We will continue antibiotic coverage for aspiration pneumonia with plan for serial imaging studies. The patient was not ill prior to her femoral neck fracture; therefore, I doubt we are dealing with underlying malignancy or granulomatous disease at this point. This will need to be followed closely; however, and we will check some screening laboratory at this time. We will obtain sputum cultures for bacteria, fungus and AFB. We will control her diabetes and continue rehabilitation program. She will stay on IV antibiotic therapy for aspiration pneumonia. <ELECTRONICALLY SIGNED> By: Manjit Bundy MD 08/19/202022 1807 1856 Manjit Bundy MD /nt
[2020-08-20 07:50] VITALS: BP 138/90
[2020-08-20 14:52] VITALS: BP 129/62
--- NOTE | 2020-08-20 15:20 | NUR ---
CLINICAL UPDATE SENT TO [facility] THIS AM. THEY ARE FOLLOWING AND INDICATED THAT THEY ARE ABLE TO ACCEPT PT ONCE MEDICALLY STABLE. CARE TEAM INDICATED PT MAY BE READY FOR DC TO [facility] TOMORROW. CM NOTIFIED PT, DTR, AND FACILITY. CM TO FOLLOW INDICATED WITH DC PLANNING.
[2020-08-20 19:49] VITALS: BP 126/59
--- NOTE | 2020-08-20 20:05 | NUR ---
Assujoanie pt care this am , vs stable. Pain is managed with medications, still refuses to help her self wiht PT. POC followed with no signs or verbalizations of distress noted. Endorsed to the night nurse.
[2020-08-21 07:15] VITALS: BP 122/64
--- NOTE | 2020-08-21 08:36 | NUR ---
progress pt progressing able to stand from chair and take a few steps to bed with assist of 2 gb and walker incision to right hip x2 with intact lavonne no drainage and well approximated. to have work up by pulmonology to clear her lungs of fluid. then pt expects to dc to rehab
[2020-08-21 09:03] VITALS: BP 122/64
[2020-08-21 09:43] LABS: HEMATOCRIT 34.7 % (37.0-47.0); MCH 29.7 pg (26.0-34.0); MCHC 31.9 g/dL (28.0-37.0); MCV 93.1 fL (80.0-100.0); RBC 3.72 mil/uL (4.20-5.00); RDW 14.6 % (10.5-14.5); WBC 19.5 thou/uL (4.0-11.0)
[2020-08-21 09:55] LABS: CALCIUM 8.6 mg/dL (8.5-10.1); CREATININE 1.3 mg/dL (0.6-1.0); POTASSIUM 4.5 mmol/L (3.5-5.1)
[2020-08-21] MEDS ORDERED: COLACE 100 MG100 MG PO (12:35)
[2020-08-21] MEDS ORDERED: METOPROLOL SUCC25 M1 PO (12:35)
[2020-08-21] MEDS ORDERED: ADULT TUSS100 MG/5 M PO (12:35)
[2020-08-21] MEDS ORDERED: AUGMENTIN 875-1 EACH PO (12:35)
[2020-08-21] MEDS ORDERED: PREDNISONE 5 MG5 MG PO ×2 (12:35→12:56)
[2020-08-21] MEDS ORDERED: ACETAMINOPHEN325 M1 PO (12:35)
--- NOTE | 2020-08-21 14:58 | NUR ---
CARE TEAM INDICATED THAT PT IS MEDICALLY STABLE TO DC TO [facility] THIS DAY. [facility]AN TRANSPORT ARRANGED FOR 1400. CM NOTIFIED PT IN PERSON AND CALLED AND NOTIFIED PT'S DTR. THEY ARE BOTH AWARE AND AGREEABLE. CHART COPY MADE. ORDERS FAXED. NURSE GIVEN NUMBER FOR REPORT. REPORT CALLED. NO OTHER CM INTERVENTION INDICATED. CASE CLOSED.
--- NOTE | 2020-08-21 18:19 | NUR ---
Received awake on bed. Due medications given as prescribed, able to swallow meds w/o difficulty. On room air. Vital signs stable. On telemetry; no complains and signs of chest pain, crushing sensation and heaviness. On carb controlled diet- tolerating well; assisted and encouraged in eating and drinking; no nausea, no vomiting and no abdominal pain noted. On blood sugar monitoring, taken and recorded accordingly; with sliding scale insulin ordered- given as prescried. With colindres in place, draining well; output measured and recorded accordingly. With SL at R FA- on Iv antibiotics. Pt seen and examined by Dr Alejandro this am, december discharge to SNF- CM informed. database development project manager talked to patient and daughter re: discharge disposition. BMP, CBC and chest xray ordered by Dr Alejandro prior to d/c- done and Dr Alejandro aware re: results. Discharge instructions, follow up schedule given and instructed. IV removed. Telemetry stopped, monitor returned. Pt requested if she can keep her colindres, called Dr Alejandro and said that pt can be discharged to the facility with colindres. Discharge forms by patient. Wound dressing changed prior to discharge. Pt's daughter present this PM during discharge. Fetched by transport staff, chart copy given. Transferred to wheelchair safely. Brought out of the unit via wheelchair with her personal belongings. Report given to Staff Char; informed her re: pt's lavonne at R hip, dressing changed today and re: colindres. Patient discharged.
== END 2020-08-21 15:30 | DRG 480 ==
LOC: ER 08:05 → 4W 09:50 → EROBS 09:50 → 4S 12:54 → 4W 18:16
PROVIDERS: Emergency Medicine; Hospitalist; Internal Medicine; Internal Medicine Pulmonary Disease; Orthopaedic Surgery Hand Surgery; ADMIT Internal Medicine; ATTEND Internal Medicine
PROC: 5A09357 Assistance with Respiratory Ventilation, Less than 24 Consecutive Hours, Continuous Positive Airway Pressure (ICD-10-PCS; principal; 2020-08-11)
PROC: 5A12012 Performance of Cardiac Output, Single, Manual (ICD-10-PCS; principal; 2020-08-11)
PROC: 5A09357 Assistance with Respiratory Ventilation, Less than 24 Consecutive Hours, Continuous Positive Airway Pressure (ICD-10-PCS; 2020-08-12)
PROC: 0QH606Z Insertion of Intramedullary Internal Fixation Device into Right Upper Femur, Open Approach (ICD-10-PCS; 2020-08-12)
DX: S72.141A Displaced intertrochanteric fracture of right femur, initial encounter for closed fracture (principal); J96.01 Acute respiratory failure with hypoxia; E43 Unspecified severe protein-calorie malnutrition; J96.02 Acute respiratory failure with hypercapnia; J18.9 Pneumonia, unspecified organism; I50.23 Acute on chronic systolic (congestive) heart failure; N17.9 Acute kidney failure, unspecified; I13.0 Hypertensive heart and chronic kidney disease with heart failure and stage 1 through stage 4 chronic kidney disease, or unspecified chronic kidney disease; I50.22 Chronic systolic (congestive) heart failure; E11.51 Type 2 diabetes mellitus with diabetic peripheral angiopathy without gangrene; N18.30 Chronic kidney disease, stage 3 unspecified; E11.22 Type 2 diabetes mellitus with diabetic chronic kidney disease; E78.00 Pure hypercholesterolemia, unspecified; I25.10 Atherosclerotic heart disease of native coronary artery without angina pectoris; I27.20 Pulmonary hypertension, unspecified; D69.6 Thrombocytopenia, unspecified; I08.1 Rheumatic disorders of both mitral and tricuspid valves; D64.9 Anemia, unspecified; R91.1 Solitary pulmonary nodule; W18.39XA Other fall on same level, initial encounter; Z20.822 Contact with and (suspected) exposure to COVID-19; E11.42 Type 2 diabetes mellitus with diabetic polyneuropathy; I25.5 Ischemic cardiomyopathy; Z89.422 Acquired absence of other left toe(s); Z89.421 Acquired absence of other right toe(s); Z90.49 Acquired absence of other specified parts of digestive tract; Z79.899 Other long term (current) drug therapy; Z79.4 Long term (current) use of insulin; Y93.89 Activity, other specified; Y92.89 Other specified places as the place of occurrence of the external cause; Y99.8 Other external cause status
CPT/HCPCS: 10045; 50010; 50101; 50133; 50386; 51412; 51538; 52304; 56524; 57092; 57279; 57281; 5747; 62110; 62900; 70005

== ENCOUNTER 2021-01-20 11:26 | Inpatient (IN) | payer OTHER ==
[~2021-01-20] VITALS: Ht 167.6 cm; Wt 94.3 kg
[~2021-01-20 11:26] MED LIST changes: +ADULT TUSS100 MG/5 M PO; +AUGMENTIN 875-1 EACH PO; +COLACE 100 MG100 MG PO; +HUMALOG100 UNIT/1 SUBQ; +IPRAT-ALBUT 0.5-3 ML INH; +LIDOPATCH1 EACH TRANSDERM; +OXYCODONE HCL 55 MG PO; +PREDNISONE 5 MG5 MG PO; +ROBAXIN 750 MG750 MG PO; +TRAMADOL 50 MG50 MG PO; +VOLTAREN GEL 1100 G1 TOP
[2021-01-20 11:45] VITALS: BP 106/79
[2021-01-20 12:40] LABS: ABSOLUTE NEUTROPHILS 8.7 thou/uL (1.4-8.2); BASOPHILS 0.5 % (0.0-2.0); HEMATOCRIT 46.1 % (37.0-47.0); HEMOGLOBIN 14.8 gm/dL (12.0-15.0); MCH 26.3 pg (26.0-34.0); MCHC 32.2 g/dL (28.0-37.0); MCV 81.8 fL (80.0-100.0); MONOCYTES 6.8 % (1.0-8.0); PLATELET COUNT 127 thou/uL (150-400); POLYS 81.7 % (36.0-66.0); RBC 5.64 mil/uL (4.20-5.00); WBC 10.6 thou/uL (4.0-11.0)
[2021-01-20 12:51] LABS: ANION GAP 2 mmol/L (7-16); BUN 86 mg/dL (7-18); CALCIUM 8.7 mg/dL (8.5-10.1); CHLORIDE 100 mmol/L (98-107); CO2 38 mmol/L (21-32); CREATININE 1.5 mg/dL (0.6-1.0); GLUCOSE 118 mg/dL (74-106); SODIUM 140 mmol/L (136-145)
[2021-01-20 13:01] LABS: ALBUMIN 3.3 g/dL (3.4-5.0); SGOT 38 U/L (15-37); SGPT 23 U/L (30-65); TOTAL BILIRUBIN 1.2 mg/dL (0.2-1.0); TROPONIN-I <0.06 ng/mL (<0.06)
--- NOTE | 2021-01-20 14:34 | EKG ---
[facility] [employer] [place] [address] ELECTROCARDIOGRAM REPORT Name: MADDEN,HUNTER Fredo Room #: [facility]#: [id number] Admission: 01/20/21 Attend Phys: Discharge: Date of : 37 Report #: [id number] [facility] ED Test Date: 2021-01-20 Test Time: 12:41:59 Pat Name: HUNTER MADDEN Department: Room: Gender: F Net Making Supervisor: TED : 1935 Requested By: Caleb Lyn Order Number: [id number] MD: Ronald Ramos Measurements Intervals [place] Rate: 80 P: [place]: QRS: 21 QRSD: 136 T: 204 QT: 361 QTc: 417 Interpretive Statements Atrial fibrillation Ventricular premature complex Nonspecific intraventricular conduction delay Anteroseptal infarct, old Repol abnrm suggests ischemia, lateral leads Compared to ECG 08/11/2020 16:50:16 Ventricular premature complex(es) now present Myocardial infarct finding now present Possible ischemia now present Sinus bradycardia no longer present Electronically Signed On 01-20-2021 14:34:18 CDT by Ronald Ramos [email or web address] <ELECTRONICALLY SIGNED> By: Ronald Ramos MD, FAC 01/20/21 1434 1241 1241 Ronald Ramos MD, [facility] /EPI
[2021-01-20 19:04] VITALS: BP 112/70
[2021-01-20] MEDS ORDERED: TRAZODONE HCL50 MG PO (20:43)
--- NOTE | 2021-01-20 23:14 | NUR ---
PT ARRIVED FROM ER VIA CART. PT IS A/0X4. BLLE WITH WRAPS ON LEGS. MED REC AND CAREPLAN COMPLETED. PT STATES SHE CANNOT SLEEP AND TRAZODONE DOES NOT WORK. EXTERNAL CATH IN PLACE.
[2021-01-21 03:18] VITALS: BP 93/59
[2021-01-21 05:28] LABS: HEMATOCRIT 42.2 % (37.0-47.0); HEMOGLOBIN 13.2 gm/dL (12.0-15.0); MCH 25.8 pg (26.0-34.0); MCHC 31.2 g/dL (28.0-37.0); MCV 82.8 fL (80.0-100.0); RBC 5.1 mil/uL (4.20-5.00)
[2021-01-21 05:40] LABS: CALCIUM 8.4 mg/dL (8.5-10.1); CREATININE 1.6 mg/dL (0.6-1.0); POTASSIUM 3.4 mmol/L (3.5-5.1)
[2021-01-21 05:55] LABS: CHOLESTEROL 87 mg/dL (<200); HDL CHOLESTEROL 39 mg/dL (>40); LDL CHOLESTEROL 35 mg/dL (<100); TC:HDL 2.2 Ratio (Not establshd); TRIGLYCERIDE 69 mg/dL (<150); VLDL 14 mg/dL (<40)
[2021-01-21 05:59] LABS: SERUM ASSESSMENT Slight Lipemia
[2021-01-21 07:44] VITALS: BP 117/76
--- NOTE | 2021-01-21 09:41 | NUR ---
WOUND CONSULT; I WAS CONSULTED FOR LEG WRAPS. THE PATIENT WAS FOUND TO HAVE GAMALIEL WRAP BILATERALLY. THERE IS NON BLANCHABLE ERYTHEMA TO THE RIGHT TOES, LEFT MEDIAL FOOT AND THE RIGHT LATERAL FOOT THAT ARE SUSPICIOUS. RECOMMENDATIONS; CONSULT DR KEMAL MENDES. DISCUSSED WITH BRENDA
--- NOTE | 2021-01-21 10:56 | 2DMMODE ---
[facility] [place] [address] 2 D/M-MODE ECHOCARDIOGRAM Name: HUNTER MADDEN Room #: 352-P ADM IN M.R.#: [id number] Admission: 01/20/21 Attend Phys: Luis King MD Discharge: Date of : 37 Report #: [id number] THIS REPORT FOR: cc: Adalgisa Guzman MD, Nora P. MD Lammoglia, Francisco J. MD ~ APPROVED REPORT Study performed: 01/21/2021 10:07:31 EXAM: Comprehensive 2D, Doppler, and color-flow Echocardiogram Patient Location: Bedside Room #: 352 Status: routine BSA: 2.04 HR: 96 bpm BP: 117/76 mmHg Rhythm: Atrial Fibrillation/PVCs Other Information Study Quality: Good Indications Leg swelling, short of breath, CHF exacerbation. Hx: CAD, cardiomyopathy, Afib, HTN, HLP, DM, PVD, COPD. 2D Dimensions RVDd: 30.33 mm IVSd: 11.58 (7-11mm) LVOT Diam: 19.86 (18-24mm) LVDd: 60.18 mm PWd: 8.43 (7-11mm) Ascending Ao: 33.47 (22-36mm) LVDs: 52.38 (25-40mm) Left Atrium: 39.70 (27-40mm) Aortic Root: 31.22 mm Volumes Left Atrial Volume (Systole) Single Plane 4CH: 62.53 mL Single Plane 2CH: 101.18 mL LA ESV Index: 43.00 mL/m2 Aortic Valve AoV Peak David.: 1.13 m/s AO Peak Gr.: 5.14 mmHg LVOT Max P.83 mmHg LVOT Max V: 0.68 m/s [facility] [place] [address] 2 D/M-MODE ECHOCARDIOGRAM Name: CHANOHUNTER Fredo Room #: 352-P [facility] IN ..#: [id number] Admission: 01/20/21 Attend Phys: Luis King MD Discharge: Date of : 37 Report #: [id number] EDUAR Vmax: 1.85 cm2 Mitral Valve MV Decel. Time: 130.66 ms MV E Max David.: 1.41 m/s Pulmonary Valve PV Peak David.: 0.82 m/s PV Peak Gr.: 2.70 mmHg Tricuspid Valve TR Peak David.: 3.43 m/s RAP Estimate: 15.00 mmHg TR Peak Gr.: 47.00 mmHg PA Pressure: 62.00 mmHg Left Ventricle Left ventricle is mildly dilated. There is normal left ventricular wall thickness. Left ventricular systolic function is moderate to severely decreased. LVEF is 30-35%. This study is not technically sufficient to allow evaluation of the LV diastolic function due to atrial fibrillation. Right Ventricle The right ventricle is normal size. Right ventricle is hypokinetic. Atria Moderate biatrial enlargement. Aortic Valve Aortic valve is trileaflet; moderately sclerotic. No aortic regurgitation is present. There is no aortic valvular stenosis. Mitral Valve Mitral valve leaflets are moderately thickened and calcified. decreased excursion of posterior leaflet Mild mitral annular calcification. Moderate to severe mitral regurgitation; eccentric jet. No evidence of mitral valve stenosis. Tricuspid Valve The tricuspid valve is normal in structure. Moderate tricuspid regurgitation. Estimated PAP is 60mmHg. Pulmonic Valve The pulmonary valve is normal in structure. Trace pulmonic regurgitation. [facility] [address] [place] [address] 2 D/M-MODE ECHOCARDIOGRAM Name: HUNTER MADDEN Room #: 352-P [facility] IN .R.#: [id number] Admission: 01/20/21 Attend Phys: Luis King MD Discharge: Date of : 37 Report #: [id number] Great Vessels The aortic root is normal in size. The ascending aorta is normal in size. IVC is dilated and collapses <50% with inspiration. Pericardium There is no pericardial effusion. Right pleural effusion. <Conclusion> Left ventricle is mildly dilated. Left ventricular systolic function is moderate to severely decreased. LVEF is 30-35%. The right ventricle is normal size. Moderate biatrial enlargement. Aortic valve is trileaflet; moderately sclerotic. No aortic regurgitation is present. There is no aortic valvular stenosis. Mitral valve leaflets are moderately thickened and calcified. decreased excursion of posterior leaflet Mild mitral annular calcification. Moderate to severe mitral regurgitation; eccentric jet. No evidence of mitral valve stenosis. The tricuspid valve is normal in structure. Moderate tricuspid regurgitation. Estimated PAP is 60mmHg. The pulmonary valve is normal in structure. Trace pulmonic regurgitation. There is no pericardial effusion. <ELECTRONICALLY SIGNED> By: Alber Durand MD 01/21/21 1056 1056 1056 Alber Durand MD /INF
[2021-01-21 15:49] VITALS: BP 104/64
--- NOTE | 2021-01-21 16:58 | NUR ---
CARE ASSUMED THIS AM, PT ALERT AND ORIENTED X4, DENIES ANY CHEST PAIN, NAUSEA AND VOMITTING. PT ON 3L-4L OF OXYGEN, SOB WITH EXERTION. PT ON IV LASIX. HAD EXTERNAL CATHETER, NO BM TODAY. FALL PRECAUTIONS IN PLACE.PT DAUGHTER VISITING, UPDATED ABOUT CARE. DENIES ANY NEEDS AT MOMENT. WILL CONTINUE TO MONITOR
[2021-01-21 19:30] VITALS: BP 119/73
[2021-01-22 00:06] LABS: GLYCOHEMOGLOBIN (HGB A1C) 7.9 % (4.8-5.6)
[2021-01-22 04:20] VITALS: BP 112/74
--- NOTE | 2021-01-22 06:03 | NUR ---
PT REQUEST PO PAIN X1 OVERNIGHT. MAJOR COMPLAINTS ARE DISCOMFORT IN HER BUTTOCKS AND PERCEIVED ABILITY OF NOT BREATHING WELL. PLACED BED IN CHAIR POSITION WHICH PT STATES IS MORE COMFORTABLE AGAIN OVERNIGHT. INTERDRY PLACE IN GROIN FOLDS AND BENEATH BOTH BREAST. TUBEGRIPS ON LEGS WITH CARES DONE DAILY. PT TELE SHOWS AFIB. 02 SATURATIONS ARE AT 97% ON 2L.
[2021-01-22 08:58] VITALS: BP 109/70
[2021-01-22 08:58] LABS: ALBUMIN 3.1 g/dL (3.4-5.0); CALCIUM 8.7 mg/dL (8.5-10.1); CREATININE 1.5 mg/dL (0.6-1.0); MAGNESIUM 2.5 mg/dL (1.8-2.4); POTASSIUM 3.5 mmol/L (3.5-5.1); TOTAL BILIRUBIN 0.8 mg/dL (0.2-1.0); TOTAL PROTEIN 6.3 g/dL (6.4-8.2)
--- NOTE | 2021-01-22 10:28 | NUR ---
TRANSPORTATION HERE TO GET PT, PT STATED SHE HAD NO IDEA ABOUT XRAY OF THE HIP AND LUMBAR. SHE REFUSE TO GO DOWN FOR THOSE XRAY. MADE DR. VILLAFANA AWARE.
[2021-01-22 13:36] LABS: APTT 28.1 Seconds (24.5-32.8); INR 1.12; PROTIME 12.1 Seconds (10.5-12.1)
[2021-01-22 14:30] VITALS: BP 109/70
--- NOTE | 2021-01-22 14:31 | NUR ---
Case opened to follow for dc planning. Underground Mine Machinery Mechanic visited with the pt and her dtr Zee at bedside. Cm role introduced. The pt is a&ox4 and indicates that she lives at home and has a delivery nurse along with [facility] services for support. Underground Mine Mach[employer] Mechanic spoke with [facility] and they are currently providing RN and PT services to the pt. They can accept her for readmission at dc. PT/OT/Rehab evals in progress. Pt indicates she is not open to going to SNF. She had gone to [facility] SNF this past Janurary and does not want to do that again. 5N evaling as well. The pt reports she is doing well with her delivery nurse and does rely on her for adl's and transfers. The pt's dtr appeared concerned about the need for 24hr caregiving in the home. The pt is hoping to get fluid tapped off today and that this will improve her ability to do some of her adl's more independently. Underground Mine Machinery Mechanic encouraged the pt and dtr to talk with the caregiver to make sure she is not overwhelmed with the pt's care needs. Will follow.
--- NOTE | 2021-01-22 15:24 | NUR ---
FAXED FACE SHEET AND H&P TO [facility]. WILL CONFIRM WITH BERE/ INTAKE THAT THEY RECEIVED. [facility] P [phone]; FAX [phone]
--- NOTE | 2021-01-22 16:03 | NUR ---
PT BACK FROM US THORACENTESIS, 1.8ML TAKEN OUT. BADAID ON RIGHT MID BACK INTACT DRY AND CLEAN. PT STATED BREATHING SEEMS ALOT BETTER. BED CHANGE, REPPSITIONED IN BED. FALL PREC. IN PLACE. DENIES ANY NEED AT THE MOMENT.
[2021-01-22 16:07] LABS: CLARITY SLIGHTLY CLOUDY; COLOR YELLOW; SOURCE RIGHT CHEST; TOTAL VOLUME 58 mL
[2021-01-22 16:39] VITALS: BP 108/70
[2021-01-22 16:40] LABS: BF NUCLEATED CELLS 233 /mm3; BF RBC 2154 /mm3
[2021-01-22 18:11] LABS: BF MACROPHAGE 20 %; BF NEUTROPHILS 24 %
[2021-01-22 19:54] VITALS: BP 107/69
[2021-01-23 03:55] VITALS: BP 109/75
--- NOTE | 2021-01-23 06:26 | NUR ---
Q2 TURNS AND PT CAN HELP ROLL. PT HAS A NON PRODUCTIVE COUGH THAT IS DEVELOPING. PO PAIN MEDICATION GIVEN X1. EXTERNAL CATH IN PLACE. AT 2251 PT HAD SHORT RUN OF V-TAC. PT CAN USE CALL LIGHT ACCORDINGLY.
[2021-01-23 07:42] VITALS: BP 92/70
[2021-01-23 10:41] LABS: CALCIUM 8.4 mg/dL (8.5-10.1); CREATININE 1.5 mg/dL (0.6-1.0); POTASSIUM 3.6 mmol/L (3.5-5.1)
[2021-01-23 16:03] VITALS: BP 113/79
[2021-01-23 19:55] VITALS: BP 120/78
[2021-01-24 04:10] VITALS: BP 100/60
[2021-01-24 05:59] LABS: HEMATOCRIT 40.8 % (37.0-47.0); HEMOGLOBIN 12.9 gm/dL (12.0-15.0); MCH 26.1 pg (26.0-34.0); MCHC 31.5 g/dL (28.0-37.0); MCV 82.9 fL (80.0-100.0); RBC 4.93 mil/uL (4.20-5.00); RDW 17.8 % (10.5-14.5); WBC 8.1 thou/uL (4.0-11.0)
[2021-01-24 06:21] LABS: CALCIUM 8.4 mg/dL (8.5-10.1); CREATININE 1.4 mg/dL (0.6-1.0); POTASSIUM 3.1 mmol/L (3.5-5.1)
--- NOTE | 2021-01-24 07:31 | NUR ---
VSS OVERNIGHT. POC WITH IVPB ZOSIN. PT ASKING QUESTIONS OF WHY DAUGHTER IS ASKING NURSE QUESTIONS AWAY FROM PT ROOM. PT STATED "ALL SHE WANTS IS FOR ME TO ." DAUGHTER GIVES CONFLICTING INFORMATION. FALL PRECAUTIONS IN PLACE. EXTERNAL CATH IN PLACE WITH GOOD OUTPUT.
[2021-01-24 07:45] VITALS: BP 110/65
--- NOTE | 2021-01-24 13:29 | NUR ---
BPCI letter and preferred provider network list provided to patient chart, unable to see patient, lives in home setting
[2021-01-24 14:59] VITALS: BP 115/75
[2021-01-24 19:30] LABS: SOURCE THORACENTESIS
[2021-01-24 19:36] VITALS: BP 109/71
[2021-01-25 02:43] VITALS: BP 109/71
[2021-01-25 04:40] VITALS: BP 116/68
[2021-01-25 05:35] LABS: ANION GAP < 0 mmol/L (7-16); BUN 67 mg/dL (7-18); CALCIUM 8.5 mg/dL (8.5-10.1); CHLORIDE 102 mmol/L (98-107); CO2 43 mmol/L (21-32); CREATININE 1.3 mg/dL (0.6-1.0); GLUCOSE 138 mg/dL (74-106); SODIUM 144 mmol/L (136-145)
--- NOTE | 2021-01-25 06:40 | NUR ---
POC WITH IVPB ANTIBIOTICS. PT WAS IN CHAIR UNTIL 2400. USING BSC WITH X1 ASSIST AND USE OF WALKER. LAST THREE NIGHTS PT WILL HAVE A SHORT RUN OF V-TACH. AFIB SHOWN ON TELE. HOURLY ROUNDING.
[2021-01-25 07:14] VITALS: BP 126/83
[2021-01-25 15:07] VITALS: BP 119/73
[2021-01-25 21:07] VITALS: BP 125/70
--- NOTE | 2021-01-26 04:46 | NUR ---
Patient progress towards outcome goals slow. Weak, slow, incontinent. Requires almost total care with ADL's. Difficulty sleeping despite Trazadone. Hydrocodone given for comfort.
[2021-01-26 05:11] LABS: HEMATOCRIT 40.6 % (37.0-47.0); HEMOGLOBIN 12.8 gm/dL (12.0-15.0); MCH 26.1 pg (26.0-34.0); MCHC 31.5 g/dL (28.0-37.0); RBC 4.89 mil/uL (4.20-5.00); RDW 17.6 % (10.5-14.5); WBC 8.3 thou/uL (4.0-11.0)
[2021-01-26 05:37] LABS: CALCIUM 8.4 mg/dL (8.5-10.1); CREATININE 1.5 mg/dL (0.6-1.0); MAGNESIUM 2.3 mg/dL (1.8-2.4); POTASSIUM 4.1 mmol/L (3.5-5.1)
[2021-01-26 07:03] VITALS: BP 105/75
--- NOTE | 2021-01-26 17:58 | NUR ---
assumed care of pt at 0700. pt aox4 in no acute distress. up w/ assist. remains weak. 2L NC. good appetite. psych consult pending.
[2021-01-26 20:18] VITALS: BP 99/64
--- NOTE | 2021-01-27 00:15 | NUR ---
PT HAD AN 8 BEAT RUN OF V TACH AT 2358
[2021-01-27 03:26] VITALS: BP 104/69
--- NOTE | 2021-01-27 04:43 | NUR ---
PROGRESS PT A/OX4 ON 2 LITERS OF O2, LUNGS DIMINISHED.ABDOMEN SOFT AND NON-TENDER HAD A SMALL BM TODAY SENNA GIVEN. PT IN BED REPOSITIONED NEEDED.PUREWICK IN PLACE ADEQUATE OUTPUT. 2 PLUS EDEMA TO BILATERAL LOWER EXTREMETIES TUBIGRIPS IN PLACE. ACCUCHECKS AND SSI CONTINUE. VSS. TELE INTACT READING AFIB WITH RATES IN 90'S TO 113'S HAD A 8 BEAT AND 13 BEAT RUN OF V TACH NO SOB OR CHEST PAIN NOTED. CONTINUE TO MONITOR.
--- NOTE | 2021-01-27 07:23 | NUR ---
positioning pt c/o of pain in her sacrum wants to be ulled up in bed frequently and wants you to pull her buttocks out on each side (speading her but cheeks). I attempted to place a pillow and reposition pt threw a fit I explained that staying supine and semi-fowlers would create more pressure and increase the risk for a pressure ulcer in that area. she stated she didnt care and refuses to be turned.
[2021-01-27 07:29] VITALS: BP 116/71
--- NOTE | 2021-01-27 08:10 | HC ---
[facility] [place] [address] CONSULTATION Name: HUNTER MADDEN Room #: 352-P ADM IN M.R.#: [id number] Admission: 01/20/21 Attend Phys: Luis King MD Discharge: Date of : 39 Report #: [id number] THIS REPORT FOR: cc: Adalgisa Guzman MD, Nora P. MD Althoff, Jeffrey R. MD ~ DOC #: [id number] Raymon Gonzalez MD DATE OF SERVICE: 01/21/2021 CHIEF COMPLAINT: Ulceration to the right great toe. HISTORY OF PRESENT ILLNESS: This is an 85-year-old female patient whom I have seen in the past, who was admitted with increasing lower extremity weakness and fatigue. I have been asked to see her with regard to wound care. The patient denies significant pain, but notes continued swelling of her lower extremities. PAST MEDICAL HISTORY: Positive for congestive heart failure, ischemic cardiomyopathy with an estimated ejection fraction of 20%, peripheral neuropathy, chronic renal insufficiency, coronary artery disease. She has had prior left great toe amputation, history of diabetes mellitus. MEDICATIONS: Include insulin, Zocor, Plavix. ALLERGIES: No known drug allergies. SOCIAL HISTORY: Negative for alcohol or tobacco use. FAMILY HISTORY: Noncontributory. REVIEW OF SYSTEMS: CONSTITUTIONAL: The patient denies fever, chills, weight loss. NEUROLOGICAL: The patient denies focal weakness, numbness, or tingling. EYES: The patient denies visual changes, redness, or drainage. ENT: The patient denies earache, nasal drainage, sore throat. CARDIOVASCULAR: The patient denies chest pain, palpitations, or diaphoresis. PULMONARY: The patient denies cough or shortness of breath. GASTROINTESTINAL: The patient denies nausea, vomiting or abdominal pain. ORTHOPEDIC: The patient does note swelling of both lower extremities. Other systems in a 14-point review of systems are negative. PHYSICAL EXAMINATION: VITAL SIGNS: At this time include temperature 36.6, pulse 96, respiratory rate 18, blood pressure 104/64. GENERAL: This is a chronically ill-appearing female patient appears in no distress. [address] [address] CONSULTATION Name: HUNTER MADDEN Room #: 352-P [facility] IN M.R.#: [id number] Admission: 01/20/21 Attend Phys: Luis King MD Discharge: Date of : 39 Report #: [id number] HEENT: Head normocephalic. Nose and throat clear. NECK: Supple. LUNGS: Diminished. HEART: Irregular. ABDOMEN: Soft. Bowel sounds are present. EXTREMITIES: Demonstrate 2-3+ edema bilaterally. She has no obvious open ulceration at this time. LABORATORY DATA: Include sodium 143, potassium 3.4, chloride 100, CO2 of 40, BUN 85, creatinine 1.6, glucose 187. White blood cell count 8000 with a hemoglobin of 13.2. CLINICAL IMPRESSION: 1. Bilateral lower extremity edema with venous dermatitis bilaterally with no open ulcerations. 2. Congestive heart failure. 3. Type 2 diabetes mellitus. 4. Obesity. 5. Generalized debility. 6. Mild protein calorie malnutrition, albumin 3.3. RECOMMENDATIONS: We will recommend AmLactin and Tubigrip from toes to knees bilaterally. Recommend elevation for edema control and heel protectors while in bed. Continue medical management, aggressive nutritional support. I appreciate being asked to see this patient in consultation. MD KRISTAL Sam/MISAEL <ELECTRONICALLY SIGNED> By: Raymon Gonzalez MD 01/27/21 0810 [id number] Raymon Gonzalez MD /nt
[2021-01-27 09:06] LABS: BODY FLUID ALBUMIN 1.6 g/dL (Not Estab.); BODY FLUID AMYLASE 59 U/L (()); BODY FLUID GLUCOSE 205 mg/dL (()); BODY FLUID LDH 88 IU/L (()); BODY FLUID PROTEIN 2.4 g/dL (())
--- NOTE | 2021-01-27 10:33 | NUR ---
Assess for length of stay. admit with CHF, hx CAD, DM. Wts up about 26 lb since 08/2020. Required thoracentesis. On lasix. Eating 75% of meals and has glucerna shake ordered 100%. Wound care has assessed and indicated nonblanchable erythema to right toes, and right/left medial foot. On heart healthy diet order, but will also add carb control with BG 138-180 and an A1C of 7.9%. Discharge placement options being discussed. Low nutrition risk
[2021-01-27] MEDS ORDERED: MELATONIN5 M1 PO (13:51)
[2021-01-27] MEDS ORDERED: TRAZODONE HCL100 MG PO (13:51)
[2021-01-27] MEDS ORDERED: ADULT LOW DOSE81 MG PO (13:51)
[2021-01-27] MEDS ORDERED: AMOX TR-K CLV1 EAC4 PO (13:51)
[2021-01-27] MEDS ORDERED: AMMONIUM LACTA226 GM TOP (13:51)
[2021-01-27 15:14] VITALS: BP 101/75
--- NOTE | 2021-01-27 15:40 | NUR ---
DISCHARGE NOTE: SW reviewed chart and spoke with nursing and attending physician. Pt is medically stable for discharge home today with HH services. Psych consulted to evaluate pt for competency. Psych recommends pt's DPOA be activated, as pt does not have capacity to make her own medical/financial decisions at this time. Copy of DPOA ppwk placed on pt's chart. Attending physician spoke with pt and dtr, casie Koch today about discharge plan. Plan is for pt to discharge home and resume HH services with [facility]. Pt's family to arrange a hospice info visit. Pt currently on O2. Rest/exercise oximetry completed. Pt requiring 2L of continuous O2. SW spoke with pt's dtr via phone to discuss discharge plan. Pt's dtr is agreeable with discharge plan. Options for DME companies provided. No preference voiced. Pt's dtr will provide transportation home once portable O2 tank has been delivered. SW offered to arrange hospice info visit. Pt's dtr states she will contact a hospice when they are ready. Pt's son-in-law is having heart surgery this week. Contact info for hospice agencies to be provided in discharge summary. SW faxed final d/c orders/summary to [facility] and notified Genia in intake of orders. SW [facility] and script [facility] O2. SW notified [facility] liaison, who will deliver portable O2 tank to pt's room. Contact info for and [employer] placed in pt's discharge summary, as well as contact info for several hospice companies. Pt's nurse to call pt's dtr when portable O2 tank has been delivered and pt is ready for discharge. No additional SW needs identified at this time, but is available to assist should needs arise.
--- NOTE | 2021-01-27 17:42 | NUR ---
STONEY'S DAUGHTER CALLED TRANSPORTATION SERVICE TO PROVIDE TRANSPORTATION FOR PATIENT TO RETURN HOME TONIGHT FOR 1800. I PROVIDED PATIENT WITH DISCHARGE INSTRUCTIONS AND EDUCATION PAMPHLETS ON NEW MEDICATIONS SHE IS PRESCRIBED. SHE VERBALIZED UNDERSTANDING OF INSTRUCTIONS, QUESTIONS AND CONCERNS WERE ADDRESSED. HOME OXYGEN SET UP AND WITH PATIENT. I CALLED HER DAUGHTER, MICHAEL, OVER THE PHONE AND REIERATED DISCHARGE INSTRUCTIONS. IV ACCESS DISCONINUED. PATIENT BELONGINGS PACKED AND WILL BE SENT WITH HER ONCE TRANSPORTATION ARRIVES.
--- NOTE | 2021-01-29 12:03 | PATH ---
[facility] [address] [place] [address] PATHOLOGY RPT PROCEDURE Name: HUNTER MADDEN Room #: 352-P [facility] IN .R.#: [id number] Admission: 01/20/21 Date of : 39 Discharge: 01/27/21 Report #: [id number] Path Case #: [id number] Note [facility] Accession Number: [id number] TESTS RESULT FLAG UNITS REF RANGE LAB Clinician Provided Cytology Information No. of containers..01 Other (Miscellaneous) Source: THORACENTESIS DIAGNOSIS: THORACENTESIS NEGATIVE FOR MALIGNANT EPITHELIAL CELLS. REACTIVE MESOTHELIAL CELLS ARE PRESENT. THIS INTERPRETATION INCLUDES EVALUATION OF A CELL BLOCK. MILD CHRONIC INFLAMMATION Pathologist ICD10: 02 J90 Signed out by: 02 Christy Ordonez MD, Pathologist NPI- [id number] Performed by: Jane Cortez, Vp Cardiovascular Service Line ([facility]) Gross description: 01 19ML, CLEAR YELLOW, 1 TP 1 CB /LCS 01/23/2021 0124 Local FLAG LEGEND: L-Low Normal,H-High Normal,LL-Alert Low,HH-Alert High <-Panic Low,>-Panic High,A-Abnormal,AA-Critical Abnormal Performed at: [address] [place] [address] Ed Marquez MD, [address] [address] Christy Ordonez MD, Specimen Comment: A courtesy copy of this report has been sent to [phone], [phone] Specimen Comment: [phone], Specimen Comment: Report sent to ,DR ROCHE / DR SIERRA Specimen Comment: A duplicate report has been generated due to demographic updates. Performed at: [address], [place] [id number] [address] [address] PATHOLOGY RPT PROCEDURE Name: CHANOHUNTER Room #: 352-P [facility] IN M.R.#: [id number] Admission: 01/20/21 Date of : 39 Discharge: 01/27/21 Report #: [id number] Path Case #: [id number] [place] Ed [facility] MD Phone: [phone]
== END 2021-01-27 18:43 | disposition home health service (06) | DRG 871 ==
LOC: ER 11:26 → EROBS 15:29 → 3W 15:29
PROVIDERS: Emergency Medicine; Internal Medicine; Internal Medicine Pulmonary Disease; Nurse Practitioner; ADMIT Hospitalist; ATTEND Hospitalist
PROC: 0W993ZZ Drainage of Right Pleural Cavity, Percutaneous Approach (ICD-10-PCS; principal; 2021-01-22)
PROC: 5A0935A Assistance with Respiratory Ventilation, Less than 24 Consecutive Hours, High Flow/Velocity Cannula (ICD-10-PCS; 2021-01-27)
DX: A41.9 Sepsis, unspecified organism (principal); I50.23 Acute on chronic systolic (congestive) heart failure; J96.01 Acute respiratory failure with hypoxia; J18.9 Pneumonia, unspecified organism; I13.0 Hypertensive heart and chronic kidney disease with heart failure and stage 1 through stage 4 chronic kidney disease, or unspecified chronic kidney disease; J91.8 Pleural effusion in other conditions classified elsewhere; E44.1 Mild protein-calorie malnutrition; J98.11 Atelectasis; I48.91 Unspecified atrial fibrillation; I25.5 Ischemic cardiomyopathy; I25.10 Atherosclerotic heart disease of native coronary artery without angina pectoris; E78.00 Pure hypercholesterolemia, unspecified; E11.51 Type 2 diabetes mellitus with diabetic peripheral angiopathy without gangrene; E78.5 Hyperlipidemia, unspecified; E11.42 Type 2 diabetes mellitus with diabetic polyneuropathy; N18.9 Chronic kidney disease, unspecified; E11.22 Type 2 diabetes mellitus with diabetic chronic kidney disease; R53.81 Other malaise; Z60.2 Problems related to living alone; I87.2 Venous insufficiency (chronic) (peripheral); E66.01 Morbid (severe) obesity due to excess calories; Z66 Do not resuscitate; E87.6 Hypokalemia; G47.00 Insomnia, unspecified; M51.36 Other intervertebral disc degeneration, lumbar region; M41.86 Other forms of scoliosis, lumbar region; Z89.412 Acquired absence of left great toe; Z95.820 Peripheral vascular angioplasty status with implants and grafts; Z79.899 Other long term (current) drug therapy; Z79.4 Long term (current) use of insulin; Z79.02 Long term (current) use of antithrombotics/antiplatelets; Z68.33 Body mass index [BMI] 33.0-33.9, adult; Z82.49 Family history of ischemic heart disease and other diseases of the circulatory system; Z86.74 Personal history of sudden cardiac arrest
CPT/HCPCS: 10879